=== PATIENT | female | born 1930 | race Caucasian/White ===

== ENCOUNTER 2016-08-14 07:48 | Inpatient (IN) | payer MEDICARE, OTHER ==
[~2016-08-14] VITALS: Ht 162.6 cm; Wt 72.5 kg
[~2016-08-14 07:48] MED LIST: ALBU8.5H4 IH; ASPI-351 PO; CALC3.7S3 NS; CALCIUM; CHLO4TAB PO; CHOLECALCIFEROL 50000 UNIT; DIL2 PO; ERGO400C PO; LEVO50TA83 PO; SMV40T PO; [UNRECOGNIZED DRUG - CODE] PO; [UNRECOGNIZED DRUG - OTHER] VG
[2016-08-14 09:34] VITALS: PULSE 61
[2016-08-14 10:19] VITALS: BP 207/84; PULSE 65; RESP 20; O2SAT 98
[2016-08-14] MEDS ORDERED: MINO100C3 PO (10:35)
[2016-08-14] MEDS ORDERED: LIP40 PO (10:35)
[2016-08-14] MEDS ORDERED: OXYC-474 PO (10:35)
[2016-08-14] MEDS ORDERED: OXYB5TAB PO (10:35)
[2016-08-14] MEDS ORDERED: LOSA25TA21 PO (10:35)
[2016-08-14] MEDS ORDERED: SOMA350 PO (10:35)
[2016-08-14] MEDS ORDERED: BUPR200T34 PO (10:35)
[2016-08-14] MEDS ORDERED: BACL10TA PO (10:35)
[2016-08-14] MEDS ORDERED: BUSP5TAB3 PO (10:35)
[2016-08-14] MEDS ORDERED: ASPI325T32 PO (10:35)
[2016-08-14] MEDS ORDERED: LEVO75TA4 PO (10:35)
[2016-08-14 11:29] VITALS: PULSE 65
[2016-08-14] MEDS ORDERED: Alum-Mag Hydrox-Simeth 30 mL Suspension PO PRN (11:35)
[2016-08-14] MEDS ORDERED: Polyethylene Glycol (PEG) 17 Gm Powder PO PRN (11:35)
--- NOTE | 2016-08-14 13:02 | PCM.HPMED ---
Subjective Date of Service Aug 14, 2016 Primary Provider: Admitting Physician: Jose M Trevino MD Primary Care Physician: Rupert Watson MD Attending Physician: Jose M Trevino MD Chief Complaint: Slurred speech and dizziness History of Present Illness: Patient is a 85-year-old female past medical history significant for hypertension CLL and thyroid disease presenting to the [facility] emergency room due to concern for stroke. She reports a complex history of symptoms beginning at approximately 2 in the afternoon yesterday with a vague dizziness and general discoordination, by 3:00 she is began noting a diffuse headache which was slow to improve with aspirin therapy, dizziness waxed and waned through the afternoon and now she felt that somewhat improved by evening she began to develop numbness in her right upper and lower extremities into the night. By principal gifts officer she developed a right hand paresthesia which was concerning enough that she called for her son who notified ENT. During this exchange her son noted she may been having difficulty with her speech, further raising concern for a possible stroke. Other tiny anterior abdomen is seen dizziness was resolving as was her headache, additionally lower extremity complaints and speech difficulties were all improving. By time of presentation to emergency department at [facility] symptoms had already essentially resolved excepting some minor issues with coordination involving her right upper extremity. She has had no history of stroke and certainly never experienced any similar symptoms such as these in the past. She denies any chest pains currently shortness of breath. Time of my evaluation she is feeling otherwise well. Denies any recent sweats or chills. Normal bowel and bladder function is reported. No noted visual field defects. Denies any cough or recent symptoms of infection. Review of Systems: A 10 point review of systems is conducted and entirely negative except for pertinent positives and negatives included above history of present illness Allergies Coded Allergies: tetracycline (Verified Allergy, Severe, 01/03/09) Blood in bowels Home Medications Atorvastatin 40 mg every evening Wellbutrin 100 mg twice a day BuSpar 10 mg twice daily Soma 350 mg by mouth 4 times daily as needed Levothyroxine 75 g daily Losartan 25 mg daily MetroGel 0.75% topical twice daily affected area Minocycline 100 mg 1-3 times daily Panthenol 1 drop daily ties Oxybutynin 5 mg daily as needed for urinary incontinence Oxycodone 5 mg by mouth every 6 hours as needed for pain PMH Chronic lymphocytic leukemia Hypothyroidism Hypertension Mood disorder with anxiety and depressive symptoms. Surgical History Ankle surgery following fracture with plate and screw needed in addition to cadaver bone graft. Neck surgery, due to spur of cervical vertebra causing neurologic impingement. Hip replacement, total Family History Report no significant past medical history Social History Hx Alcohol Use: No Hx Substance Use: No Smoking Status: Never Smoker Exam Vital Signs Vital Sign - Last Date Time Temp Pulse Resp B/P Pulse Ox O2 Delivery O2 Flow Rate FiO2 08/14/16 11:29 65 08/14/16 10:19 36.6 20 207/84 98 Room Air General: Alert, Oriented X3, Cooperative, No Acute Distress Eyes: PERRLA, EOMI Mouth: Mucous Membr Moist/[place] Neck: Supple, Other Chest & Lungs: Clear to auscultation & percussion Cardiovascular: Regular Rate/Rhythm, No Murmurs/Rubs/Gallops Abdomen: Non-tender, Non-distended Extremities: No cyanosis/clubbing/edma bilat Neurological: Grossly Neurologically Intact, Cranial Nerves 2-12 Intact, Normal Speech, Sensation Intact, Cerebellar Function nl Finger-Nose, Cerebellar Function nl Heel-Piedra, Other (no weakness or tingling of right hand reported during my initial examination) Assessment & Plan 85-year-old female past medical history severe hypertension presented with transient symptoms concerning for TIA or possible stroke. Seun on transfer from [facility] for further evaluation, medically stable condition: 1. TIA/CVA - Patient has essentially resolved CT head without contrast demonstrates no evidence of hemorrhagic condition - We will observe patient on TIA stroke protocol, continuous telemetry monitoring in addition to neurologic checks every 4 hours - MRI via stroke protocol is currently pending of head and neck - Complete echocardiogram also pending - Fasting lipid panel and hemoglobin A1c also ordered and pending - Permissive hypertension will be allowed when necessary medications to keep pressures becoming excessive - Initiate daily aspirin therapy 81 mg starting tomorrow as she has already received 325 emergency department at [facility]. 2. Hypertension - As noted above rule out some degree of permissive hypertension - We will continue patient's home losartan, first dose to be provided on admission - Continue to monitor consider more aggressive control starting tomorrow. 3. Hypothyroidism - TSH is ordered and pending to evaluate current state - We will continue home dose of levothyroxine at this time 4. Mood disorder - We will continue patient's home medications of Wellbutrin and BuSpar Pain Evaluation: Adequate Pain Control GI Prophylaxis: Not indicated VTE Mechanical Devices: Intermittant Pneumatic CD Resuscitation Status: CPR: Attempt Resuscitation Time spent 55 minutes Erasto Osman DO Aug 14, 2016 13:02
[2016-08-14 14:59] VITALS: BP 211/69; PULSE 68; RESP 17; O2SAT 97
[2016-08-14] MEDS: Labetalol 5 mg/mL 4 mL Inj IVPUSH PRN ×3 (15:28→23:28)
[2016-08-14] MEDS: buPROPion SR 100 mg ER12 Tablet PO SCH (18:19)
--- NOTE | 2016-08-14 18:27 | DRSVH ---
PROCEDURE: MRI STROKE PROTOCOL ([id number]) Pre- and post-contrast brain MRI, non-contrast brain MR angiogram, pre- and postcontrast neck MR rashi ogram INDICATIONS: Dizziness,evaluate for stroke TECHNIQUE: Brain: Noncontrast axial T1 spin echo, axial T2 fast spin echo, sagittal and axial FLAIR, coronal T2 fast spin echo, axial gradient echo, axial diffusion and ADC through the brain. After the administr ation of contrast, axial 3D VIBE of the cranial vasculature and brain. Brain MRA: Non-contrast 3-D time of flight MR angiogram, with multiple dfxglzo-mjejphuwg-qkeawyemzz (MIP) reformats performed. Neck MRA: Axial and sagittal TruFISP through the neck. Coronal dynamic MR angiogram during administ ration of contrast in the arterial and venous phases, with 3-dimenstional copvgmg-eftdkvmgu-gjgqzyspk n (MIP) reformats constructed from subtraction images. COMPARISON: None. FINDINGS: Image quality: Excellent. BRAIN: CSF spaces: Ventricles are normal in size and shape. Basal cisterns are patent. No extra-axial flu id collections. Brain: No intracranial bleeds or mass effects. Mcdonald-white matter interface is normal. Diffusion we ighted images show no acute ischemic insults. Punctate and confluent areas of increased T2 signal not ed in the periventricular and subcortical white matter tracts compatible with mild to moderate chroni c microvascular ischemic changes. Brainstem appears normal. Normal intravascular flow voids are pre sent. No abnormal intracranial enhancement. Skull and face: Calvarial marrow signal is normal. Orbits appear normal. Sinuses: Sinuses and mastoids are clear. BRAIN MR ANGIOGRAM: Anterior circulation: Intracranial internal carotid arteries are normal in size and enhancement. Th e flow within the paired anterior cerebral arteries is normal and symmetric. The flow within the mid dle cerebral arteries is normal and symmetric. The anterior communicating artery is seen. No stenos es, occlusions, or aneurysms. Posterior circulation: The visualized portions of the vertebral arteries demonstrate normal caliber, and join to form a normal appearing basilar artery. The flow within the posterior cerebral arteries is normal and symmetric. No stenoses, occlusions, or aneurysms. NECK MR ANGIOGRAM: Carotids: Great vessels demonstrate a conventional anatomy as they arise from the aortic arch. The origins of the common carotid arteries appear patent. The calibers and courses of both common caroti d arteries are normal. Mild atherosclerotic irregularity noted in the origins of the internal carotid arteries bilaterally which causes less than 50% stenosis. Posterior circulation: Atherosclerotic irregularity noted in the origins of the vertebral arteries b ilaterally. Atherosclerotic disease causes high grade stenosis of the origin of the right vertebral artery. Atherosclerotic disease causes moderate stenosis of the origin of the left vertebral artery. More superior portions of both vertebral arteries demonstrate normal course and caliber, and join t o form a normal appearing basilar artery. Miscellaneous: Subclavian arteries appear patent. Pre-contrast images through the neck show no soft tissue abnormalities. IMPRESSION: BRAIN MRI: 1. No acute intracranial disease process. 2. No areas of acute or chronic infarction. 3. Mild, diffuse volume loss. 4. Mild to moderate periventricular and subcortical white matter chronic microvascular ischemic boyd ges. BRAIN MR ANGIOGRAM: Negative examination. NECK MR ANGIOGRAM: 1. Less than 50% stenosis of the internal carotid arteries bilaterally. 2. High-grade stenosis of the origin of the right vertebral artery. 3. Moderate stenosis of the origin of the left vertebral artery. The estimate of stenosis included in the report of the imaging study was calculated using the NASCET method Dictated by: Taya Castañeda MD, PhD on 08/14/2016 at 18:19 Approved by: Taya Castañeda MD, PhD on 08/14/2016 at 18:25
[2016-08-14] MEDS: BusPIRone 15 mg Dividose Tablet PO SCH (20:42)
[2016-08-14 21:05] VITALS: BP 195/76; PULSE 70; RESP 18; O2SAT 97
[2016-08-15] VITALS (14 sets, daily range): BP systolic 145–210; BP diastolic 65–80; PULSE 57–67; RESP 16–20; O2SAT 96–98
[2016-08-15 06:34] LABS: BASOPHILS % (AUTO) 0.2 % (0-3); EOSINOPHILS % (AUTO) 4.8 % (0-5); MONOCYTES % (AUTO) 4.5 % (4-12); Mean Corpuscular Hemoglobin 32.3 pg (27.0-35.0); Mean Corpuscular Volume 101.5 fL (81-100); NEUTROPHILS % (AUTO) 18.3 % (40-74); Platelet Count 173 bil/L (150-400)
[2016-08-15] MEDS: BusPIRone 15 mg Dividose Tablet PO SCH ×2 (08:40→19:57)
[2016-08-15] MEDS: buPROPion SR 100 mg ER12 Tablet PO SCH ×2 (08:43→17:35)
[2016-08-15] MEDS: Labetalol 5 mg/mL 4 mL Inj IVPUSH PRN ×3 (09:32→18:34)
--- NOTE | 2016-08-15 16:01 | DRSVH ---
[facility] [address] [place] [address] Echocardiogram Report Name: HECTOR GOODEN BStudy Date: 08/15/2016 Height: 64 in Hospital Exam Location: [facility] Weight: 143 lb Gender: Female BSA: 1.7 m2 : 1930 Age: 85 yrs BP: 180/75 mmHg Reason For Study: CVA Ordering Physician: HOSPITALIST [facility] Performed By: Brown Rivas Referring Physician: Dr. Anirudh Watson Interpretation Summary The ejection fraction is estimated to be 60-65%. There are no focal wall motion abnormalities. Left ventricular wall thickness is mildly increased. Injection of contrast documented no interatrial shunt. There is mild tricuspid regurgitation. The right ventricular systolic pressure is estimated at 30 mmHg assuming a right atrial pressure of 3 mm Hg. Procedure: A two-dimensional transthoracic echocardiogram with color flow and Doppler was performed. The study quality was technically good. There is no prior echocardiogram noted for this patient. A saline contrast injection was performed to assess for cardiac shunting. The patient was in normal sinus rhythm during the exam. Left Ventricle: The left ventricle is normal in size. Left ventricular wall thickness is mildly increased. A false chord is noted (normal variant). The ejection fraction is estimated to be 60-65%. There are no focal wall motion abnormalities. Right Ventricle: The right ventricle is normal in size and function. Atria: The left atrium is mildly dilated. Right atrial size is normal. Injection of contrast documented no interatrial shunt. Mitral Valve: The mitral valve is normal in structure and function. There is trace mitral regurgitation. Aortic Valve: The aortic valve is normal in structure and function. The aortic valve is trileaflet. The aortic valve opens well. No aortic regurgitation is present. Tricuspid Valve: The tricuspid valve is normal in structure and function. There is mild tricuspid regurgitation. The right ventricular systolic pressure is estimated at 30 mmHg assuming a right atrial pressure of 3 mm Hg. Pulmonic Valve: The pulmonic valve is normal in structure and function. There is trace pulmonic regurgitation. Great Vessels: The aortic root is normal size. The dimensions of the ascending aorta are normal. The pulmonary artery is normal size. The IVC is of normal diameter and collapses greater than 50% with a sniff. This suggests a low right atrial pressure of 3 mm Hg. Pericardium/ Pleura There is no pericardial effusion. There is no pleural effusion. MMode/2D Measurements & Calculations LVIDd: 4.1 cm RA long axis Ao root diam LVIDs: 2.4 cm LA A2 area: 19.9 cm FS: 41.9 % LA A4 area: 18.0 cm RA area Aortic Jxn EPSS: 0.77 cm LA length (vol): 5.1 cm IVSd: 1.3 cm LA vol: 59.7 ml : 16.1 cm asc Aorta LVPWd: 1.3 cm LA vol index RA vol: 45.6 mlDiam: 3.1 cm RA : 26.9 mm2 IVC diam: 1.2 cm LV hansen. diameter/BSA LV sys. diameter/BSA (cm/m^2): 2.4 (cm/m^2): 1.4 Doppler Measurements & Calculations Ao V2 max MV E max miguel MV E/A: 0.69 TR max miguel : 120.9 cm/sec : 54.4 cm/sec Med Peak E' Miguel : 260.1 cm/sec Ao max PG MV A max miguel TR max P.1 mmHg : 5.8 mmHg : 78.8 cm/sec E/E' med: 14.8 PA V2 max: 66.9 cm/sec Ao mean PG Pulm A Revs Dur PA mean P.0 mmHg : 3.5 mmHg PA Accel Time: 0.13 sec MV A dur: 0.14 sec MV dec time Ao V2 mean PA V2 mean Pulm A Revs Dur - MV A : 0.34 sec : 89.3 cm/sec : 47.0 cm/sec Dur: 0.01 msec Ao V2 VTI : 28.5 cm Electronically signed by: Bulmaro De León on Reading Physician:08/15/2016 04:00 PM
[2016-08-15] MEDS ORDERED: Labetalol 5 mg/mL 20 mL Inj IV ONE (17:40)
[2016-08-16] VITALS (11 sets, daily range): BP systolic 135–205; BP diastolic 71–97; PULSE 50–72; RESP 14–20; O2SAT 95–98
--- NOTE | 2016-08-16 00:29 | PCM.PNMED ---
Subjective Date of Service Aug 16, 2016 Subjective Patient is feeling a little bit better. However, she states she has had recurrence of neurological symptoms since admission to the hospital. Exam Vital Signs Vital Sign - Last Date Time Temp Pulse Resp B/P Pulse Ox O2 Delivery O2 Flow Rate FiO2 08/15/16 20:56 36.8 64 18 187/76 96 Room Air Intake and Output 08/15/16 08/15/16 08/16/16 Cumulative From/Thru 15:00 23:00 07:00 08/14/16 09:56 - 08/15/16 19:08 Intake Total 400 ml 1297 ml Output Total 500 ml 1550 ml Balance -100 ml -253 ml Intake Oral 400 ml 950 ml IV Total 337 ml Tube Irrigant 10 ml Output Urine Total 500 ml 1550 ml # Voids 2 # Bowel Movements 1 Exam General: Patient is in no apparent distress lying supine in bed. HEENT: Head is atraumatic and normocephalic. Eyes: Pupils are equally round and reactive to light and accommodation. Extraocular muscles are intact. Sclera are white, anicteric. Subconjunctival mucosa is pink. Ears and nose are unremarkable. Oropharynx: There is no mucosal lesions, there is no thrush, there is no pharyngitis. Neck: Is supple, there are no nodes, or masses or tenderness. Chest: Is clear to auscultation and percussion. There are no rales, rhonchi, wheezes or rubs. Heart: Rate, rhythm is regular. There is no murmur, rub or gallop. Abdomen: Good bowel sounds are present. Abdomen is soft, nontender, no organomegaly or masses were appreciated. Extremities: Are symmetrical and well perfused. There is no edema, there is no cellulitis, no rash. Neurologic: There are no focal neurological deficits. Cranial nerves II through XII are intact. There are no sensory or motor deficits. Psychiatric: Patients mood is calm and shows no sign of agitation. Genital: Deferred Rectal: Deferred Lab and Diagnostics Result Diagram: 08/15/1660408/15/16604 X-Rays, CTs and MRIs PROCEDURE: MRI STROKE PROTOCOL ([id number]) Pre- and post-contrast brain MRI, non-contrast brain MR angiogram, pre- and postcontrast neck MR angiogram INDICATIONS: Dizziness,evaluate for stroke TECHNIQUE: Brain: Noncontrast axial T1 spin echo, axial T2 fast spin echo, sagittal and axial FLAIR, coronal T2 fast spin echo, axial gradient echo, axial diffusion and ADC through the brain. After the administration of contrast, axial 3D VIBE of the cranial vasculature and brain. Brain MRA: Non-contrast 3-D time of flight MR angiogram, with multiple maximum- intensity-projection (MIP) reformats performed. Neck MRA: Axial and sagittal TruFISP through the neck. Coronal dynamic MR angiogram during administration of contrast in the arterial and venous phases, with 3-dimenstional ochdqhq-vnzhndgyx-hylyuesimw (MIP) reformats constructed from subtraction images. COMPARISON: None. FINDINGS: Image quality: Excellent. BRAIN: CSF spaces: Ventricles are normal in size and shape. Basal cisterns are patent. No extra-axial fluid collections. Brain: No intracranial bleeds or mass effects. Mcdonald-white matter interface is normal. Diffusion weighted images show no acute ischemic insults. Punctate and confluent areas of increased T2 signal noted in the periventricular and subcortical white matter tracts compatible with mild to moderate chronic microvascular ischemic changes. Brainstem appears normal. Normal intravascular flow voids are present. No abnormal intracranial enhancement. Skull and face: Calvarial marrow signal is normal. Orbits appear normal. Sinuses: Sinuses and mastoids are clear. BRAIN MR ANGIOGRAM: Anterior circulation: Intracranial internal carotid arteries are normal in size and enhancement. The flow within the paired anterior cerebral arteries is normal and symmetric. The flow within the middle cerebral arteries is normal and symmetric. The anterior communicating artery is seen. No stenoses, occlusions, or aneurysms. Posterior circulation: The visualized portions of the vertebral arteries demonstrate normal caliber, and join to form a normal appearing basilar artery. The flow within the posterior cerebral arteries is normal and symmetric. No stenoses, occlusions, or aneurysms. NECK MR ANGIOGRAM: Carotids: Great vessels demonstrate a conventional anatomy as they arise from the aortic arch. The origins of the common carotid arteries appear patent. The calibers and courses of both common carotid arteries are normal. Mild atherosclerotic irregularity noted in the origins of the internal carotid arteries bilaterally which causes less than 50% stenosis. Posterior circulation: Atherosclerotic irregularity noted in the origins of the vertebral arteries bilaterally. Atherosclerotic disease causes high grade stenosis of the origin of the right vertebral artery. Atherosclerotic disease causes moderate stenosis of the origin of the left vertebral artery. More superior portions of both vertebral arteries demonstrate normal course and caliber, and join to form a normal appearing basilar artery. Miscellaneous: Subclavian arteries appear patent. Pre-contrast images through the neck show no soft tissue abnormalities. IMPRESSION: BRAIN MRI: 1. No acute intracranial disease process. 2. No areas of acute or chronic infarction. 3. Mild, diffuse volume loss. 4. Mild to moderate periventricular and subcortical white matter chronic microvascular ischemic changes. BRAIN MR ANGIOGRAM: Negative examination. NECK MR ANGIOGRAM: 1. Less than 50% stenosis of the internal carotid arteries bilaterally. 2. High-grade stenosis of the origin of the right vertebral artery. 3. Moderate stenosis of the origin of the left vertebral artery. The estimate of stenosis included in the report of the imaging study was calculated using the NASCET method Dictated by: Taya Castañeda MD, PhD on 08/14/2016 at 18:19 Approved by: Taya Castañeda MD, PhD on 08/14/2016 at 18:25 Cardiac Echo Impressions Echocardiogram Report Name: HECTOR GOODEN BStudy Date: 08/15/2016 Height: 64 in Hospital Exam Location: [facility] Weight: 143 lb Gender: Female BSA: 1.7 m2 : 1930 Age: 85 yrs BP: 180/75 mmHg Reason For Study: CVA Ordering Physician: HOSPITALIST [facility] Performed By: Brown Rivas Referring Physician: Dr. Anirudh Watson Interpretation Summary The ejection fraction is estimated to be 60-65%. There are no focal wall motion abnormalities. Left ventricular wall thickness is mildly increased. Injection of contrast documented no interatrial shunt. There is mild tricuspid regurgitation. The right ventricular systolic pressure is estimated at 30 mmHg assuming a right atrial pressure of 3 mm Hg. Assessment & Plan 85-year-old female past medical history severe hypertension presented with transient symptoms concerning for TIA or possible stroke. Seun on transfer from [facility] for further evaluation, medically stable condition: 1. TIA/CVA present of the time of admission with stuttering TIAs after admission to recurrent episodes of right upper extremity and right lower extremity numbness both resolved and patient back at baseline now. - We will observe patient on TIA stroke protocol, continuous telemetry monitoring in addition to neurologic checks every 4 hours - MRI via stroke protocol of head and neck reveal source of patient's symptoms. - Complete echocardiogram also fails to reveal source of patient's symptoms. - Fasting lipid panel and hemoglobin A1c also ordered and are found to be within normal range. - Permissive hypertension will be allowed when necessary medications to keep pressures becoming excessive - Initiate daily aspirin therapy 81 mg starting tomorrow as she has already received 325 emergency department at [facility]. - Continue atorvastatin 2. Hypertension - As noted above rule out some degree of permissive hypertension - We will continue patient's home losartan, first dose to be provided on admission - Continue to monitor consider more aggressive control starting tomorrow. 3. Hypothyroidism - TSH is normal. - We will continue home dose of levothyroxine at this time 4. Mood disorder - We will continue patient's home medications of Wellbutrin and BuSpar Disposition: If patient remains stable and has no recurrent episodes of inpatient TIA like symptoms will likely discharge home in a.m. Pain Evaluation: Adequate Pain Control GI Prophylaxis: Not indicated VTE Mechanical Devices: Intermittant Pneumatic CD Resuscitation Status: CPR: Attempt Resuscitation Jerome Chavez MD Aug 16, 2016 00:29
--- NOTE | 2016-08-16 06:42 | DRSVH ---
PROCEDURE: CT BRAIN WITHOUT CONTRAST ([id number]) INDICATIONS: stroke TECHNIQUE: Noncontrast 4.5 mm thick angled axial sections acquired from the foramen magnum to the vertex, with c oronal reformats. COMPARISON: Outside Film, CT, CT BRAIN WO CON, 08/14/2016, 1:20. FINDINGS: Image quality: Excellent. CSF spaces: Basal cisterns are patent. No extra-axial fluid collections. Ventricles are normal in size and shape. Brain: No midline shift. No intracranial masses or hemorrhage. Mcdonald-white matter interface is norm al. Skull and face: Calvarium and visualized facial bones are intact, without suspicious lesions. Sinuses: Visualized sinuses and mastoids are clear. IMPRESSION: 1. No CT evidence of acute intracranial pathology. 2. There are no discrepancies with the preliminary report. Dictated by: Sumanth Tyler M.D. on 08/16/2016 at 6:38 Approved by: Sumanth Tyler M.D. on 08/16/2016 at 6:40
[2016-08-16 07:02] LABS: BASOPHILS % (AUTO) 0.3 % (0-3); EOSINOPHILS % (AUTO) 4.8 % (0-5); MONOCYTES % (AUTO) 6.1 % (4-12); Mean Corpuscular Volume 101.7 fL (81-100); NEUTROPHILS % (AUTO) 23.7 % (40-74); Platelet Count 152 bil/L (150-400)
[2016-08-16 07:31] LABS: Magnesium 1.8 mg/dL (1.6-2.6)
[2016-08-16] MEDS ORDERED: Magnesium Sulf 2 Gm/50mL Water 2 GM in IV Premix 1 EACH IV ONE (09:15)
[2016-08-16] MEDS: BusPIRone 15 mg Dividose Tablet PO SCH ×2 (09:16→22:01)
[2016-08-16] MEDS: buPROPion SR 100 mg ER12 Tablet PO SCH ×2 (09:18→18:15)
[2016-08-16] MEDS: Labetalol 5 mg/mL 4 mL Inj IVPUSH PRN (10:50)
[2016-08-16] MEDS: Ondansetron 2 mg/mL 2 mL Inj IVPUSH PRN (12:00)
[2016-08-16 14:13] LABS: APPEARANCE,URINE HAZY (CLEAR,HAZY); COLOR,URINE YELLOW (YELLOW)
[2016-08-16 14:14] LABS: OCCULT BLOOD,URINE TRACE (NEGATIVE); UROBILINOGEN,URINE NORMAL (NORMAL)
--- NOTE | 2016-08-16 16:09 | PCM.CHPMED ---
Subjective Date of Service: Aug 16, 2016 Provider requesting consult: Jerome Chavez MD Primary Physician: Admitting Physician: Jose M Trevino MD Primary Care Physician: Rupert Watson MD Attending Physician: Jose M Trevino MD Chief Complaint: Chief Complaint: Right arm and leg numbness, speech difficulty History of Present Illness: Patient is a 85-year-old female with a history of hypertension, CLL, and hypothyroidism, who presented to [facility] ER with impaired coordination, right arm and leg numbness, and transient speech difficulty. Her symptoms began at about 2 PM on 08/13 with dizziness and poor coordination, and she began to develop a diffuse headache. By the evening, she began to develop numbness in her right upper and lower extremities. By the early childhood coordinator, her right hand numbness and tingling had worsened so she called her son who notified EMT. Her son had noticed some speech difficulty over the phone, but this had apparently resolved by the time the medics arrived. She reports her symptoms had mostly resolved by the time she arrived to the hospital, and had no other complaints. She was transferred to [facility], where she was noted to have severe hypertension (BP 207/84). She denied any other symptoms on admission. She was not on Aspirin before the symptoms began. MRI stroke protocol on 08/14/16 showed no acute intracranial process, mild- moderate periventricular and subcortical white matter chronic microvascular ischemic changes, high grade stenosis of the right vertebral artery, and moderate stenosis of the left vertebral artery. CT brain without contrast on 08/15 was negative for any acute intracranial process. Her blood pressure remained elevated and difficult to control, with SBP ranging between 180s-200s. Yesterday, she began to notice worsening right arm and leg numbness and her speech difficulties began worsening. Today, she reports right arm and leg numbness with impaired coordination of her right arm. She also reports worsening speech difficulties, and states she has been having slurred slower speech and difficulty with word-finding. She also reports some difficulty ambulating today due to right leg weakness. She denies vision changes, facial droop, difficulty swallowing. She states she had a recent hip fracture and surgery and has been ambulating with a cane. She states she is very independent at baseline and is highly motivated to return to her independent lifestyle. Review of Systems: Comprehensive review of systems conducted and was negative except for the pertinent positives listed above. PMH Past Medical History Chronic lymphocytic leukemia Hypothyroidism Hypertension Mood disorder with anxiety and depressive symptoms. Bedside Blood Glucose: 145 Surgical History Ankle surgery following fracture with plate and screw needed in addition to cadaver bone graft. Neck surgery, due to spur of cervical vertebra causing neurologic impingement. Hip replacement, total Allergies: Coded Allergies: tetracycline (Verified Allergy, Severe, 01/03/09) Blood in bowels Family History Family History Report no significant family history Social History Hx Alcohol Use: NoHx Substance Use: No Smoking Status: Never Smoker Exam Vital Signs Vital Sign - Last Date Time Temp Pulse Resp B/P Pulse Ox O2 Delivery O2 Flow Rate FiO2 08/16/16 13:58 36.4 61 14 135/73 08/16/16 10:05 98 Room Air Intake and Output 08/15/16 08/15/16 08/16/16 Cumulative From/Thru 15:00 23:00 07:00 08/14/16 09:56 - 08/16/16 06:16 Intake Total 400 ml 200 ml 1497 ml Output Total 500 ml 300 ml 1850 ml Balance -100 ml -100 ml -353 ml Intake Oral 400 ml 200 ml 1150 ml IV Total 337 ml Tube Irrigant 10 ml Output Urine Total 500 ml 300 ml 1850 ml # Voids 2 # Bowel Movements 0 1 Additional Information: General: Alert, Oriented X3, Cooperative, No acute distress Head: Normocephalic, atraumatic. External ears normal. Eyes: PERRLA, EOMI. Anicteric sclerae. Mouth: Mouth normal, Mucous membranes moist/pink Neck: Neck supple with full range of motion. Chest& Lungs: Clear to auscultation bilaterally with no crackles, wheezes, or rhonchi. Cardiovascular: Regular rate/rhythm, Normal S1, Normal S2, No murmurs/rubs/ gallops Abdomen: Non-tender, Non-distended, No masses, Normoactive bowel tones, Soft Musculoskeletal: Normal range of motion Extremities: Bilateral lower extremity 1+ edema with chronic venous stasis changes. Neurological: Slow slurred speech, with some delayed word finding. Strength 4/4 in left upper and lower extremities. Strength 3/4 in right arm, 2/4 in right leg. Cranial Nerves 2-12 Intact with some right sided facial droop, decreased temperature sensation in right upper extremity, Finger-Nose and Heel-Piedra slow on the right due to weakness, but fairly normal. Lab and Diagnostics Result Diagram: 08/16/16 0640 08/16/1640 Assessment & Plan Assessment Patient is a 85-year-old female with a history of hypertension, CLL, and hypothyroidism, who presented to [facility] ER with impaired coordination, right arm and leg numbness and weakness, and transient speech difficulty, and experienced recurrence of her symptoms on 08/15/16. Acute stroke. The patient's symptoms have persisted and worsened over 4 days, which makes TIA much less likely. Her severe hypertension has likely been in response to her stroke. Given her right sided weakness and numbness, along with waxing and waning symptoms, she likely has a lacunar stroke, as a left sided hemispheric lesion in a right handed patient would likely result in some aphasia, which she does not demonstrate. Her MRI angio and CT noncontrast of the brain were previously negative, but given her recent change in symptoms, we recommend further imaging. Will order MRI of brain noncontrast with CT angio of head and neck. CT angio tends to more accurately represent stenosis of head/neck vasculature than MRI, and MRI captures brainstem and cerebellar strokes more accurately. As this appears to be a stroke secondary to extracranial cerebrovascular disease, we recommend monotherapy with Aspirin. We also recommend high-dose statin therapy. As she was cleared by speech therapy before her symptoms worsened, we recommend a repeat swallow study. Also recommend continuing with physical therapy. If she has severe cerebrovascular disease on repeat imaging, recommend outpatient referral to [facility] for evaluation for possible stenting. - Aspirin 81 mg daily - Increase atorvastatin to 80 mg daily - MRI noncontrast of brain - CT angio of head/neck - Repeat swallow study - Continue physical therapy - Maintain BP below 140/90 Problems: Pain Evaluation: Adequate Pain Control GI Prophylaxis: Not indicated VTE Mechanical Devices: Venous Foot Pump Resuscitation Status: CPR: Attempt Resuscitation Jorge Luis Nino Aug 16, 2016 16:08
--- NOTE | 2016-08-16 21:44 | DRSVH ---
PROCEDURE: MRI BRAIN WITHOUT CONTRAST ([id number]) INDICATIONS: Stroke TECHNIQUE: Non-contrast axial T1 spin echo, axial T2 fast spin echo, sagittal and axial FLAIR, coronal T2 fast s pin echo, axial gradient echo, axial diffusion and ADC through the brain. COMPARISON: [facility], CT, CT BRAIN WO CON, 08/15/2016, 22:12. [facility], MR, MR STROKE PROTOCOL, 08/14/2016, 16:37. [facility], CT, CT BRAIN WO CON, 08/14/2016, 1:20. FINDINGS: Image quality: Excellent. CSF spaces: Ventricles appear symmetric in size and shape. Basal cisterns are patent. No extra-axi al fluid collections. Brain: No intracranial bleeds or mass effects. There is cerebral volume loss for age. There are pe riventricular and deep white matter chronic small vessel ischemic changes. Brainstem appears normal. Diffusion-weighted images show a new left pontine 5 x 6 mm focus of acute or subacute ischemic inju ry, as seen on the diffusion pulse sequence series 2 image 59 and corroborated by reduced ADC map angela ue in that area. Mild to moderate chronic ischemic insults. Normal intravascular flow voids are pres ent. Skull and face: Calvarial bone marrow is normal in signal. Orbits are normal. Sinuses: Sinuses and mastoids are clear. IMPRESSION: There is a new finding of a 5 x 6 mm focus of acute or subacute stroke involving the lef t pontine region of the brainstem, without mass effect or hemorrhage. No additional focus of recent ischemic injury is found. Dictated by: Elijah Samuel M.D. on 08/16/2016 at 21:36 Approved by: Elijah Samuel M.D. on 08/16/2016 at 21:42
--- NOTE | 2016-08-16 22:21 | DRSVH ---
PROCEDURE: CT ANGIO HEAD AND NECK (P) INDICATIONS: 85 year-old female with history of new pontine infarct presenting for evaluation of poss ible vertebral artery occlusive disease. TECHNIQUE: Pre-contrast 4.5 mm thick sections acquired from the foramen magnum to the vertex. After the adminis tration of intravenous contrast, 1 mm thick sections acquired from the aortic arch through the [place] of [place]. Post-contrast 4.5 mm thick sections then re-acquired from the foramen magnum to the vert ex. 3-dimensional lvuzlzs-lwzubrogv-pjpvzerwoe (MIP) and/or volume rendering reformats were acquired of the central intracranial vasculature and neck separately. For radiation dose reduction, the foll owing was used: automated exposure control, adjustment of mA and/or kV according to patient size. COMPARISON: [facility], MR, MR STROKE PROTOCOL, 08/14/2016, 16:37. [facility], MR, MR BRAIN WO CON, 08/16/2016, 20:57. [facility], CT, CT BRAIN WO CON, 08/15/2016, 22 :12. FINDINGS: Image quality: Excellent. BRAIN: CSF spaces: There is mild cerebral volume loss with prominence of the ventricles and sulci. Basal ci sterns are patent. No extra-axial fluid collections. Brain: There is a small indistinct hypodensity within the left alberto corresponding to the acute focal infarct seen on recent MRI. No intracranial hemorrhage, mass, or mass effect. There are bilateral s ubcortical and periventricular white matter hypodensity consistent with moderate chronic small vessel ischemic changes. Skull and face: Calvarium and facial bones appear intact, without suspicious lesions. Orbits appear normal. Sinuses: Sinuses and mastoids are clear. HEAD CT ANGIOGRAPHY: Anterior circulation: Intracranial internal carotid arteries are patent bilaterally. The flow withi n the paired anterior cerebral arteries is patent bilaterally. The flow within the middle cerebral a rteries is patent bilaterally. The anterior communicating artery is patent. No high-grade stenosis or occlusion. No discrete aneurysms. Posterior circulation: Visualized portions of the vertebral arteries are patent bilaterally and join to form a patent basilar artery. Flow within the posterior cerebral arteries is normal and symmetri c. No aneurysms are seen. NECK CT ANGIOGRAPHY: Carotid system: The great vessels demonstrate conventional anatomy as they arise from the aortic arc h. The origins of the common carotid arteries appear patent. The common carotid arteries demonstrat e normal caliber and courses. There is calcified plaque in the carotid bulbs bilaterally, left great er than right. There is associated mild narrowing in the left carotid bulb with less than 50%. Ther e is minimal narrowing in the right carotid bulb of less than 20%. The internal carotid arteries dem onstrate normal calibers and courses. Posterior circulation: The origins of the vertebral arteries are both patent without focal stenoses. There is tortuosity within the proximal vertebral arteries bilaterally. The more superior extracra nial portions of both vertebral arteries also appear patent along the course. They join to form a pa tent appearing basilar artery. Soft tissues: Visualized neck soft tissues demonstrate no suspicious abnormalities. Bones: No suspicious bony lesions. Visualized cervical spine appears normally aligned. IMPRESSION: 1. No high-grade stenosis or occlusion of the central intracranial arteries or head and neck arterie s. Specifically, no focal stenosis demonstrated in the vertebral or basilar arteries. 2. Tortuosity in the proximal vertebral arteries likely accounts for artifact on recent MRI. No foc al stenosis demonstrated at their origins. 3. Mild narrowing in the carotid bulbs bilaterally of less than 20% on the right and less than 50% o n the left. 4. Small hypodensity demonstrated in the left alberto corresponding to the acute infarct seen on recent MRI. No evidence of intracranial hemorrhage. Dictated by: Levi Oneal M.D. on 08/16/2016 at 22:08 Approved by: Levi Oneal M.D. on 08/16/2016 at 22:20
--- NOTE | 2016-08-16 22:42 | PCM.PNMED ---
Subjective Date of Service Aug 16, 2016 Subjective Patient's does not feel well today and her family is concerned as her speech is slurred again today. Patient had dizziness and nausea and vomiting 1 today. Patient has no other new complaints. This afternoon she is feeling a little better. Exam Vital Signs Vital Sign - Last Date Time Temp Pulse Resp B/P Pulse Ox O2 Delivery O2 Flow Rate FiO2 08/16/16 21:23 36.6 58 18 187/78 95 Room Air Intake and Output 08/15/16 08/15/16 08/16/16 Cumulative From/Thru 15:00 23:00 07:00 08/14/16 09:56 - 08/16/16 06:16 Intake Total 400 ml 200 ml 1497 ml Output Total 500 ml 300 ml 1850 ml Balance -100 ml -100 ml -353 ml Intake Oral 400 ml 200 ml 1150 ml IV Total 337 ml Tube Irrigant 10 ml Output Urine Total 500 ml 300 ml 1850 ml # Voids 2 # Bowel Movements 0 1 Exam General: Patient appears tired and fatigued. Patient otherwise is in no apparent distress lying supine in bed. HEENT: Head is atraumatic and normocephalic. Eyes: Pupils are equally round and reactive to light and accommodation. Extraocular muscles are intact. Sclera are white, anicteric. Subconjunctival mucosa is pink. Ears and nose are unremarkable. Oropharynx: There is no mucosal lesions, there is no thrush, there is no pharyngitis. Neck: Is supple, there are no nodes, or masses or tenderness. Chest: Is clear to auscultation and percussion. There are no rales, rhonchi, wheezes or rubs. Heart: Rate, rhythm is regular. There is no murmur, rub or gallop. Abdomen: Good bowel sounds are present. Abdomen is soft, nontender, no organomegaly or masses were appreciated. Extremities: Are symmetrical and well perfused. There is no edema, there is no cellulitis, no rash. Neurologic: There are no focal neurological deficits. Cranial nerves II through XII are intact. There are no sensory or motor deficits. However, patient speech is not slurred today. Psychiatric: Patients mood is calm and shows no sign of agitation. Genital: Deferred Rectal: Deferred Lab and Diagnostics Result Diagram: 08/16/16 0640 08/16/16 0640 X-Rays, CTs and MRIs PROCEDURE: MRI STROKE PROTOCOL ([id number]) Pre- and post-contrast brain MRI, non-contrast brain MR angiogram, pre- and postcontrast neck MR angiogram INDICATIONS: Dizziness,evaluate for stroke TECHNIQUE: Brain: Noncontrast axial T1 spin echo, axial T2 fast spin echo, sagittal and axial FLAIR, coronal T2 fast spin echo, axial gradient echo, axial diffusion and ADC through the brain. After the administration of contrast, axial 3D VIBE of the cranial vasculature and brain. Brain MRA: Non-contrast 3-D time of flight MR angiogram, with multiple maximum- intensity-projection (MIP) reformats performed. Neck MRA: Axial and sagittal TruFISP through the neck. Coronal dynamic MR angiogram during administration of contrast in the arterial and venous phases, with 3-dimenstional iewspbj-smjkwuvdh-svgjnemomb (MIP) reformats constructed from subtraction images. COMPARISON: None. FINDINGS: Image quality: Excellent. BRAIN: CSF spaces: Ventricles are normal in size and shape. Basal cisterns are patent. No extra-axial fluid collections. Brain: No intracranial bleeds or mass effects. Mcdonald-white matter interface is normal. Diffusion weighted images show no acute ischemic insults. Punctate and confluent areas of increased T2 signal noted in the periventricular and subcortical white matter tracts compatible with mild to moderate chronic microvascular ischemic changes. Brainstem appears normal. Normal intravascular flow voids are present. No abnormal intracranial enhancement. Skull and face: Calvarial marrow signal is normal. Orbits appear normal. Sinuses: Sinuses and mastoids are clear. BRAIN MR ANGIOGRAM: Anterior circulation: Intracranial internal carotid arteries are normal in size and enhancement. The flow within the paired anterior cerebral arteries is normal and symmetric. The flow within the middle cerebral arteries is normal and symmetric. The anterior communicating artery is seen. No stenoses, occlusions, or aneurysms. Posterior circulation: The visualized portions of the vertebral arteries demonstrate normal caliber, and join to form a normal appearing basilar artery. The flow within the posterior cerebral arteries is normal and symmetric. No stenoses, occlusions, or aneurysms. NECK MR ANGIOGRAM: Carotids: Great vessels demonstrate a conventional anatomy as they arise from the aortic arch. The origins of the common carotid arteries appear patent. The calibers and courses of both common carotid arteries are normal. Mild atherosclerotic irregularity noted in the origins of the internal carotid arteries bilaterally which causes less than 50% stenosis. Posterior circulation: Atherosclerotic irregularity noted in the origins of the vertebral arteries bilaterally. Atherosclerotic disease causes high grade stenosis of the origin of the right vertebral artery. Atherosclerotic disease causes moderate stenosis of the origin of the left vertebral artery. More superior portions of both vertebral arteries demonstrate normal course and caliber, and join to form a normal appearing basilar artery. Miscellaneous: Subclavian arteries appear patent. Pre-contrast images through the neck show no soft tissue abnormalities. IMPRESSION: BRAIN MRI: 1. No acute intracranial disease process. 2. No areas of acute or chronic infarction. 3. Mild, diffuse volume loss. 4. Mild to moderate periventricular and subcortical white matter chronic microvascular ischemic changes. BRAIN MR ANGIOGRAM: Negative examination. NECK MR ANGIOGRAM: 1. Less than 50% stenosis of the internal carotid arteries bilaterally. 2. High-grade stenosis of the origin of the right vertebral artery. 3. Moderate stenosis of the origin of the left vertebral artery. The estimate of stenosis included in the report of the imaging study was calculated using the NASCET method Dictated by: Taya Castañeda MD, PhD on 08/14/2016 at 18:19 Approved by: Taya Castañeda MD, PhD on 08/14/2016 at 18:25 Cardiac Echo Impressions Echocardiogram Report Name: HECTOR GOODEN BStudy Date: 08/15/2016 Height: 64 in Hospital Exam Location: [facility] Weight: 143 lb Gender: Female BSA: 1.7 m2 : 1930 Age: 85 yrs BP: 180/75 mmHg Reason For Study: CVA Ordering Physician: HOSPITALIST [facility] Performed By: Brown Rivas Referring Physician: Dr. Anirudh Watson Interpretation Summary The ejection fraction is estimated to be 60-65%. There are no focal wall motion abnormalities. Left ventricular wall thickness is mildly increased. Injection of contrast documented no interatrial shunt. There is mild tricuspid regurgitation. The right ventricular systolic pressure is estimated at 30 mmHg assuming a right atrial pressure of 3 mm Hg. Assessment & Plan 85-year-old female past medical history severe hypertension presented with transient symptoms concerning for TIA or possible stroke. Ce[facility]in on transfer from [facility] for further evaluation, medically stable condition: 1. TIA/CVA present of the time of admission with stuttering TIAs after admission with recurrent episodes of right upper extremity and right lower extremity numbness both resolved and patient back at baseline now. However, patient now has slurred speech. It is - We will observe patient on TIA stroke protocol, continuous telemetry monitoring in addition to neurologic checks every 4 hours - MRI via stroke protocol of head and neck failed to reveal source of patient's symptoms. - Complete echocardiogram also fails to reveal source of patient's symptoms. - Fasting lipid panel and hemoglobin A1c also ordered and are found to be within normal range. - Permissive hypertension was allowed and when necessary medications to keep pressures becoming excessive. - Continue daily aspirin therapy. - Continue atorvastatin - I have consulted Dr. Terry Gallardo of neurology and appreciate his time and expertise. Dr. Gallardo recommends increasing losartan for improved blood pressure control at this point. - Dr. Gallardo also recommends the following: "- Aspirin 81 mg daily - Increase atorvastatin to 80 mg daily - MRI noncontrast of brain - CT angio of head/neck - Repeat swallow study - Continue physical therapy - Maintain BP below 140/90" 2. Hypertension - As noted above rule out some degree of permissive hypertension - We will continue patient's home losartan, first dose to be provided on admission - Continue to monitor consider more aggressive control starting tomorrow. - I have consulted Dr. Terry Gallardo of neurology and appreciate his time and expertise. Dr. Gallardo recommends increasing losartan for improved blood pressure control at this point. 3. Hypothyroidism - TSH is normal. - We will continue home dose of levothyroxine at this time 4. Mood disorder - We will continue patient's home medications of Wellbutrin and BuSpar Disposition: According to Dr. Terry gallardo patient has likely had a lacunar cerebrovascular accident which has gone undetected by MRI. And will continue with speech therapy and occupational therapy and physical therapy. Will discharge home when we are certain patient's symptoms are not worsening. And she is either stable or improving. Pain Evaluation: Adequate Pain Control GI Prophylaxis: Not indicated VTE Mechanical Devices: Venous Foot Pump Resuscitation Status: CPR: Attempt Resuscitation Jerome Chavez MD Aug 16, 2016 22:42
[2016-08-17] VITALS (9 sets, daily range): BP systolic 128–186; BP diastolic 66–81; PULSE 53–67; RESP 15–18; O2SAT 94–98
[2016-08-17 06:33] LABS: BASOPHILS % (AUTO) 0.2 % (0-3); EOSINOPHILS % (AUTO) 4.4 % (0-5); MONOCYTES % (AUTO) 4.9 % (4-12); Mean Corpuscular Hemoglobin 32.1 pg (27.0-35.0); Mean Corpuscular Volume 101.5 fL (81-100); NEUTROPHILS % (AUTO) 27.4 % (40-74); Platelet Count 169 bil/L (150-400)
[2016-08-17 06:51] LABS: Phosphorus 4.4 mg/dL (2.5-4.9)
[2016-08-17] MEDS: buPROPion SR 100 mg ER12 Tablet PO SCH ×2 (09:35→16:59)
[2016-08-17] MEDS: BusPIRone 15 mg Dividose Tablet PO SCH ×2 (09:35→21:48)
[2016-08-17] MEDS: Ondansetron 2 mg/mL 2 mL Inj IVPUSH PRN (09:59)
--- NOTE | 2016-08-17 18:05 | PCM.PNMED ---
Subjective Date of Service Aug 17, 2016 Subjective Patient this morning complained of right upper extremity weakness and right lower extremity weakness which is new. Previously she had complained of right upper extremity numbness and right lower extremity numbness. Patient continues to have slurred speech. Exam Vital Signs Vital Sign - Last Date Time Temp Pulse Resp B/P Pulse Ox O2 Delivery O2 Flow Rate FiO2 08/17/16 17:42 36.8 66 18 153/81 98 Room Air Intake and Output 08/16/16 08/16/16 08/17/16 Cumulative From/Thru 15:00 23:00 07:00 08/14/16 09:56 - 08/17/16 05:49 Intake Total 400 ml 300 ml 2197 ml Output Total 500 ml 500 ml 2850 ml Balance -100 ml -200 ml -653 ml Intake Oral 400 ml 300 ml 1850 ml IV Total 337 ml Tube Irrigant 10 ml Output Urine Total 500 ml 500 ml 2850 ml # Voids 2 # Bowel Movements 1 Exam General: Patient appears tired and fatigued. Patient otherwise is in no apparent distress lying supine in bed. HEENT: Head is atraumatic and normocephalic. Eyes: Pupils are equally round and reactive to light and accommodation. Extraocular muscles are intact. Sclera are white, anicteric. Subconjunctival mucosa is pink. Ears and nose are unremarkable. Oropharynx: There is no mucosal lesions, there is no thrush, there is no pharyngitis. Neck: Is supple, there are no nodes, or masses or tenderness. Chest: Is clear to auscultation and percussion. There are no rales, rhonchi, wheezes or rubs. Heart: Rate, rhythm is regular. There is no murmur, rub or gallop. Abdomen: Good bowel sounds are present. Abdomen is soft, nontender, no organomegaly or masses were appreciated. Extremities: Are symmetrical and well perfused. There is no edema, there is no cellulitis, no rash. Neurologic: Cranial nerves II through XII are intact. Patient has some weakness of the right upper extremity and weakness of the right lower extremity. Patient has slurred speech today. Psychiatric: Patients mood is calm and shows no sign of agitation. Genital: Deferred Rectal: Deferred Lab and Diagnostics Result Diagram: 08/17/1661908/17/16 0620 X-Rays, CTs and MRIs PROCEDURE: MRI STROKE PROTOCOL ([id number]) Pre- and post-contrast brain MRI, non-contrast brain MR angiogram, pre- and postcontrast neck MR angiogram INDICATIONS: Dizziness,evaluate for stroke TECHNIQUE: Brain: Noncontrast axial T1 spin echo, axial T2 fast spin echo, sagittal and axial FLAIR, coronal T2 fast spin echo, axial gradient echo, axial diffusion and ADC through the brain. After the administration of contrast, axial 3D VIBE of the cranial vasculature and brain. Brain MRA: Non-contrast 3-D time of flight MR angiogram, with multiple maximum- intensity-projection (MIP) reformats performed. Neck MRA: Axial and sagittal TruFISP through the neck. Coronal dynamic MR angiogram during administration of contrast in the arterial and venous phases, with 3-dimenstional cydghtt-rneuhlbsz-qdypuyqotg (MIP) reformats constructed from subtraction images. COMPARISON: None. FINDINGS: Image quality: Excellent. BRAIN: CSF spaces: Ventricles are normal in size and shape. Basal cisterns are patent. No extra-axial fluid collections. Brain: No intracranial bleeds or mass effects. Mcdonald-white matter interface is normal. Diffusion weighted images show no acute ischemic insults. Punctate and confluent areas of increased T2 signal noted in the periventricular and subcortical white matter tracts compatible with mild to moderate chronic microvascular ischemic changes. Brainstem appears normal. Normal intravascular flow voids are present. No abnormal intracranial enhancement. Skull and face: Calvarial marrow signal is normal. Orbits appear normal. Sinuses: Sinuses and mastoids are clear. BRAIN MR ANGIOGRAM: Anterior circulation: Intracranial internal carotid arteries are normal in size and enhancement. The flow within the paired anterior cerebral arteries is normal and symmetric. The flow within the middle cerebral arteries is normal and symmetric. The anterior communicating artery is seen. No stenoses, occlusions, or aneurysms. Posterior circulation: The visualized portions of the vertebral arteries demonstrate normal caliber, and join to form a normal appearing basilar artery. The flow within the posterior cerebral arteries is normal and symmetric. No stenoses, occlusions, or aneurysms. NECK MR ANGIOGRAM: Carotids: Great vessels demonstrate a conventional anatomy as they arise from the aortic arch. The origins of the common carotid arteries appear patent. The calibers and courses of both common carotid arteries are normal. Mild atherosclerotic irregularity noted in the origins of the internal carotid arteries bilaterally which causes less than 50% stenosis. Posterior circulation: Atherosclerotic irregularity noted in the origins of the vertebral arteries bilaterally. Atherosclerotic disease causes high grade stenosis of the origin of the right vertebral artery. Atherosclerotic disease causes moderate stenosis of the origin of the left vertebral artery. More superior portions of both vertebral arteries demonstrate normal course and caliber, and join to form a normal appearing basilar artery. Miscellaneous: Subclavian arteries appear patent. Pre-contrast images through the neck show no soft tissue abnormalities. IMPRESSION: BRAIN MRI: 1. No acute intracranial disease process. 2. No areas of acute or chronic infarction. 3. Mild, diffuse volume loss. 4. Mild to moderate periventricular and subcortical white matter chronic microvascular ischemic changes. BRAIN MR ANGIOGRAM: Negative examination. NECK MR ANGIOGRAM: 1. Less than 50% stenosis of the internal carotid arteries bilaterally. 2. High-grade stenosis of the origin of the right vertebral artery. 3. Moderate stenosis of the origin of the left vertebral artery. The estimate of stenosis included in the report of the imaging study was calculated using the NASCET method Dictated by: Taya Castañeda MD, PhD on 08/14/2016 at 18:19 Approved by: Taya Castañeda MD, PhD on 08/14/2016 at 18:25 Cardiac Echo Impressions Echocardiogram Report Name: HECTOR GOODEN BStudy Date: 08/15/2016 Height: 64 in Hospital Exam Location: [facility] Weight: 143 lb Gender: Female BSA: 1.7 m2 : 1930 Age: 85 yrs BP: 180/75 mmHg Reason For Study: CVA Ordering Physician: HOSPITALIST [facility] Performed By: Brown Rivas Referring Physician: Dr. Anirudh Watson Interpretation Summary The ejection fraction is estimated to be 60-65%. There are no focal wall motion abnormalities. Left ventricular wall thickness is mildly increased. Injection of contrast documented no interatrial shunt. There is mild tricuspid regurgitation. The right ventricular systolic pressure is estimated at 30 mmHg assuming a right atrial pressure of 3 mm Hg. Assessment & Plan 85-year-old female past medical history severe hypertension presented with transient symptoms concerning for TIA or possible stroke. Ceftin on transfer from [facility] for further evaluation, medically stable condition: 1. CVA present of the time of admission with waxing and waning of symptoms after admission with recurrent episodes of right upper extremity and right lower extremity numbness, and now weakness. Patient continues to have slurred speech. - We will observe patient on stroke protocol, continuous telemetry monitoring in addition to neurologic checks every 4 hours - Repeat MRI via stroke protocol of head, showed a left alberto cerebrovascular accident. - Complete echocardiogram also fails to reveal source of patient's symptoms. - Fasting lipid panel and hemoglobin A1c also ordered and are found to be within normal range. - Permissive hypertension was allowed initially - Continue daily aspirin therapy. - Continue atorvastatin - I have consulted Dr. Terry Cintron of neurology and appreciate his time and expertise. Dr. Cintron recommends increasing losartan for improved blood pressure control at this point. - Dr. Cintron also recommends the following: "- Aspirin 81 mg daily - Increase atorvastatin to 80 mg daily - MRI noncontrast of brain - CT angio of head/neck - Repeat swallow study - Continue physical therapy - Maintain BP below 140/90" 2. Hypertension - As noted above rule out some degree of permissive hypertension - We will continue patient's home losartan, first dose to be provided on admission - Continue to monitor consider more aggressive control starting tomorrow. - I have consulted Dr. Terry Cintron of neurology and appreciate his time and expertise. Dr. Cintron recommends increasing losartan for improved blood pressure control at this point. We will add amlodipine 2.5 mg by mouth this evening 3. Hypothyroidism - TSH is normal. - We will continue home dose of levothyroxine at this time 4. Mood disorder - We will continue patient's home medications of Wellbutrin and BuSpar Disposition: I spoke with Dr. Terry Cintron today regarding patient's condition. He feels that the patient's symptoms may continue to worsen or wax and wane. Therefore, will need to continue close monitoring with neuro checks and blood pressure control until patient has become more stable. Pain Evaluation: Adequate Pain Control GI Prophylaxis: Not indicated VTE Mechanical Devices: Intermittant Pneumatic CD Resuscitation Status: CPR: Attempt Resuscitation Jerome Chavez MD Aug 17, 2016 18:04
--- NOTE | 2016-08-17 20:12 | PROG NOTE ---
[address] [address] PROGRESS NOTE PATIENT: HECTOR GOODEN : 1930 MR#: [id number] ADMIT: 08/14/2016 JOB ID: [id number] DATE: 08/17/2016 SUBJECTIVE: The patient reportedly did note transient worsening of her neurologic symptoms Earlier today. This has since slightly improved. I did explain to her that this is likely secondary to the stuttering nature of her transient ischemic attack. PHYSICAL EXAMINATION: Temperature 36.3, pulse of 61, respiratory rate of 18, blood pressure 137/72, pulse oximetry 98% on room air. General: She is a well-developed, well-nourished woman, in no acute distress. Head: Normocephalic, atraumatic. Neck supple. No carotid bruits were auscultated. Chest: Clear to auscultation. Heart: Regular rate and rhythm. Abdomen: Soft, nondistended, nontender. Extremities: No cyanosis, clubbing, or edema. NEUROLOGIC EXAMINATION: Mental status: She is awake, alert, and oriented x3. Speech is dysarthric but there is no aphasia. Cranial nerves: Pupils equal, round, and reactive to light. Extraocular movements were smooth and conjugate with no evidence of nystagmus. Face appeared symmetrical. Facial sensation was intact to light touch and temperature. There was a mild right facial droop as well as diminished sensation on the right side of her face. Tongue was midline. Sternocleidomastoid and trapezius were 5/5 bilaterally. Motor: Right upper extremity 4/5. Right lower extremity 3/5. Extremities: There was bilateral lower extremity 1+ edema with chronic venous stasis changes. Sensation was diminished to light touch and temperature over the right upper and right lower extremities. Coordination: Elrbfp-zf-jjop and zsts-em-ixwq were abnormal, however, commensurate, given the degree of weakness with no evidence of dysmetria. Deep tendon reflexes diminished throughout. The Babinski was present bilaterally. Gait was deferred. IMPRESSION: A 5 x 6 mm subacute stroke involving the left pontine region of the brainstem without mass effect or hemorrhage. The computed tomography angiogram demonstrated no high-grade stenosis or occlusion of the central intracranial arteries of the head and neck. No focal stenosis was noted in the vertebral or basilar arteries. There was tortuosity of the proximal vertebral arteries likely accounting for artifact of the prior magnetic resonance imaging study of the brain, and no focal stenosis demonstrated at their origins, however. Mild narrowing of the carotid bulbs bilaterally, less than 20% on the right and less than 50% on the left was noted. On the CT today, a small hypodensity corresponding to the acute infarct was appreciated. RECOMMENDATIONS: Continue stroke protocol. Continue to optimize control of her stroke risk factors including hypertension. At this point, she has had permissive hypertension since the onset of the stroke on Friday, and at this point, I would continue to optimize control of her blood pressures, gradually bringing the blood pressure under closer control, aiming for a systolic of 140. Continue stroke protocol. Continue physical therapy/occupational therapy. She would also benefit from being evaluated for placement in a retirement facility or undergoing inpatient rehab. Thank you, again, Dr. Chavez, for allowing me to participate in the care of your patient. Please feel free to contact me with any questions or concerns. I believe that she would benefit from either obtaining further therapy in a retirement facility or inpatient rehabilitation.
[2016-08-18] VITALS (8 sets, daily range): BP systolic 147–197; BP diastolic 51–77; PULSE 57–68; RESP 16–18; O2SAT 95–98
[2016-08-18 08:03] LABS: BASOPHILS % (AUTO) 0.4 % (0-3); EOSINOPHILS % (AUTO) 3.8 % (0-5); MONOCYTES % (AUTO) 5.9 % (4-12); NEUTROPHILS % (AUTO) 21.2 % (40-74); Platelet Count 166 bil/L (150-400)
[2016-08-18] MEDS: BusPIRone 15 mg Dividose Tablet PO SCH ×2 (09:14→20:11)
[2016-08-18] MEDS: buPROPion SR 100 mg ER12 Tablet PO SCH ×2 (09:15→17:41)
[2016-08-18 14:02] LABS: APPEARANCE,URINE CLEAR (CLEAR,HAZY); COLOR,URINE STRAW (YELLOW)
[2016-08-18 14:03] LABS: OCCULT BLOOD,URINE TRACE (NEGATIVE); UROBILINOGEN,URINE NORMAL (NORMAL)
[2016-08-18] MEDS: Labetalol 5 mg/mL 4 mL Inj IVPUSH PRN (19:22)
--- NOTE | 2016-08-18 22:21 | PCM.PNMED ---
Subjective Date of Service Aug 18, 2016 Subjective Patient continues to feel very dizzy in the morning with nausea. However this morning she did not experience any emesis which she had the 2 previous mornings. She still feels very weak and still has right upper extremity and right lower extremity weakness along with slurred speech. Exam Vital Signs Vital Sign - Last Date Time Temp Pulse Resp B/P Pulse Ox O2 Delivery O2 Flow Rate FiO2 08/18/16 20:10 156/51 08/18/16 20:00 62 08/18/16 18:21 36.4 18 98 Room Air Intake and Output 08/17/16 08/17/16 08/18/16 Cumulative From/Thru 15:00 23:00 07:00 08/14/16 09:56 - 08/18/16 05:09 Intake Total 636 ml 2833 ml Output Total 275 ml 3125 ml Balance 361 ml -292 ml Intake Oral 636 ml 2486 ml IV Total 337 ml Tube Irrigant 10 ml Output Urine Total 200 ml 3050 ml Emesis 75 ml 75 ml # Voids 1 3 # Bowel Movements 1 Exam General: Patient appears tired and fatigued. Patient otherwise is in no apparent distress lying supine in bed. HEENT: Head is atraumatic and normocephalic. Eyes: Pupils are equally round and reactive to light and accommodation. Extraocular muscles are intact. Sclera are white, anicteric. Subconjunctival mucosa is pink. Ears and nose are unremarkable. Oropharynx: There is no mucosal lesions, there is no thrush, there is no pharyngitis. Neck: Is supple, there are no nodes, or masses or tenderness. Chest: Is clear to auscultation and percussion. There are no rales, rhonchi, wheezes or rubs. Heart: Rate, rhythm is regular. There is no murmur, rub or gallop. Abdomen: Good bowel sounds are present. Abdomen is soft, nontender, no organomegaly or masses were appreciated. Extremities: Are symmetrical and well perfused. There is no edema, there is no cellulitis, no rash. Neurologic: Cranial nerves II through XII are intact. Patient continues to have some weakness of the right upper extremity and weakness of the right lower extremity. Patient has slurred speech again today. Psychiatric: Patients mood is calm and shows no sign of agitation. Genital: Deferred Rectal: Deferred Lab and Diagnostics Result Diagram: 08/18/16 0725 08/18/16 0725 X-Rays, CTs and MRIs PROCEDURE: MRI STROKE PROTOCOL ([id number]) Pre- and post-contrast brain MRI, non-contrast brain MR angiogram, pre- and postcontrast neck MR angiogram INDICATIONS: Dizziness,evaluate for stroke TECHNIQUE: Brain: Noncontrast axial T1 spin echo, axial T2 fast spin echo, sagittal and axial FLAIR, coronal T2 fast spin echo, axial gradient echo, axial diffusion and ADC through the brain. After the administration of contrast, axial 3D VIBE of the cranial vasculature and brain. Brain MRA: Non-contrast 3-D time of flight MR angiogram, with multiple maximum- intensity-projection (MIP) reformats performed. Neck MRA: Axial and sagittal TruFISP through the neck. Coronal dynamic MR angiogram during administration of contrast in the arterial and venous phases, with 3-dimenstional qjvcxga-chudrrnvt-cedkxfzhth (MIP) reformats constructed from subtraction images. COMPARISON: None. FINDINGS: Image quality: Excellent. BRAIN: CSF spaces: Ventricles are normal in size and shape. Basal cisterns are patent. No extra-axial fluid collections. Brain: No intracranial bleeds or mass effects. Mcdonald-white matter interface is normal. Diffusion weighted images show no acute ischemic insults. Punctate and confluent areas of increased T2 signal noted in the periventricular and subcortical white matter tracts compatible with mild to moderate chronic microvascular ischemic changes. Brainstem appears normal. Normal intravascular flow voids are present. No abnormal intracranial enhancement. Skull and face: Calvarial marrow signal is normal. Orbits appear normal. Sinuses: Sinuses and mastoids are clear. BRAIN MR ANGIOGRAM: Anterior circulation: Intracranial internal carotid arteries are normal in size and enhancement. The flow within the paired anterior cerebral arteries is normal and symmetric. The flow within the middle cerebral arteries is normal and symmetric. The anterior communicating artery is seen. No stenoses, occlusions, or aneurysms. Posterior circulation: The visualized portions of the vertebral arteries demonstrate normal caliber, and join to form a normal appearing basilar artery. The flow within the posterior cerebral arteries is normal and symmetric. No stenoses, occlusions, or aneurysms. NECK MR ANGIOGRAM: Carotids: Great vessels demonstrate a conventional anatomy as they arise from the aortic arch. The origins of the common carotid arteries appear patent. The calibers and courses of both common carotid arteries are normal. Mild atherosclerotic irregularity noted in the origins of the internal carotid arteries bilaterally which causes less than 50% stenosis. Posterior circulation: Atherosclerotic irregularity noted in the origins of the vertebral arteries bilaterally. Atherosclerotic disease causes high grade stenosis of the origin of the right vertebral artery. Atherosclerotic disease causes moderate stenosis of the origin of the left vertebral artery. More superior portions of both vertebral arteries demonstrate normal course and caliber, and join to form a normal appearing basilar artery. Miscellaneous: Subclavian arteries appear patent. Pre-contrast images through the neck show no soft tissue abnormalities. IMPRESSION: BRAIN MRI: 1. No acute intracranial disease process. 2. No areas of acute or chronic infarction. 3. Mild, diffuse volume loss. 4. Mild to moderate periventricular and subcortical white matter chronic microvascular ischemic changes. BRAIN MR ANGIOGRAM: Negative examination. NECK MR ANGIOGRAM: 1. Less than 50% stenosis of the internal carotid arteries bilaterally. 2. High-grade stenosis of the origin of the right vertebral artery. 3. Moderate stenosis of the origin of the left vertebral artery. The estimate of stenosis included in the report of the imaging study was calculated using the NASCET method Dictated by: Taya Castañeda MD, PhD on 08/14/2016 at 18:19 Approved by: Taya Castañeda MD, PhD on 08/14/2016 at 18:25 Cardiac Echo Impressions Echocardiogram Report Name: HECTOR GOODEN BStudy Date: 08/15/2016 Height: 64 in Hospital Exam Location: [facility] Weight: 143 lb Gender: Female BSA: 1.7 m2 : 1930 Age: 85 yrs BP: 180/75 mmHg Reason For Study: CVA Ordering Physician: HOSPITALIST [facility] Performed By: Brown Rivas Referring Physician: Dr. Anirudh Watson Interpretation Summary The ejection fraction is estimated to be 60-65%. There are no focal wall motion abnormalities. Left ventricular wall thickness is mildly increased. Injection of contrast documented no interatrial shunt. There is mild tricuspid regurgitation. The right ventricular systolic pressure is estimated at 30 mmHg assuming a right atrial pressure of 3 mm Hg. Assessment & Plan 85-year-old female past medical history severe hypertension presented with transient symptoms concerning for TIA or possible stroke. Ceftin on transfer from [facility] for further evaluation, medically stable condition: 1. CVA present of the time of admission with waxing and waning of symptoms after admission with recurrent episodes of right upper extremity and right lower extremity numbness, and now weakness. Patient continues to have slurred speech. - We will observe patient on stroke protocol, continuous telemetry monitoring in addition to neurologic checks every 4 hours - Repeat MRI via stroke protocol of head, showed a left alberto cerebrovascular accident. - Complete echocardiogram also fails to reveal source of patient's symptoms. - Fasting lipid panel and hemoglobin A1c also ordered and are found to be within normal range. - Permissive hypertension was allowed initially - Continue daily aspirin therapy. - Continue atorvastatin - I have consulted Dr. Terry Cintron of neurology and appreciate his time and expertise. Dr. Cintron recommends increasing losartan for improved blood pressure control at this point. - Dr. Cintron also recommends the following: "- Aspirin 81 mg daily - Increase atorvastatin to 80 mg daily - MRI noncontrast of brain - CT angio of head/neck - Repeat swallow study - Continue physical therapy - Maintain BP below 140/90" 2. Hypertension - As noted above rule out some degree of permissive hypertension - We will continue patient's home losartan, first dose to be provided on admission - Continue to monitor consider more aggressive control starting tomorrow. - I have consulted Dr. Terry Cintron of neurology and appreciate his time and expertise. Dr. Cintron recommends increasing losartan for improved blood pressure control at this point. We will begin losartan 50 mg by mouth twice a day and discontinue amlodipine given only once last evening. As amlodipine might be contributed to patient's continued dizziness. 3. Hypothyroidism - TSH is normal. - We will continue home dose of levothyroxine at this time 4. Mood disorder - We will continue patient's home medications of Wellbutrin and BuSpar Disposition: Patient will need placement in a [facility] facility for continued rehabilitation the patient she would prefer to go to [facility] in [place]. Pain Evaluation: Adequate Pain Control GI Prophylaxis: Not indicated VTE Mechanical Devices: Intermittant Pneumatic CD Resuscitation Status: CPR: Attempt Resuscitation Jerome Chavez MD Aug 18, 2016 22:21
[2016-08-19] VITALS (10 sets, daily range): BP systolic 133–196; BP diastolic 56–78; PULSE 58–70; RESP 16; O2SAT 94–99
[2016-08-19 07:00] LABS: BASOPHILS % (AUTO) 0.5 % (0-3); EOSINOPHILS % (AUTO) 3.6 % (0-5); MONOCYTES % (AUTO) 6.4 % (4-12); Mean Corpuscular Hemoglobin 32.2 pg (27.0-35.0); Mean Corpuscular Volume 101.6 fL (81-100); NEUTROPHILS % (AUTO) 26.3 % (40-74); Platelet Count 173 bil/L (150-400)
[2016-08-19 07:35] LABS: Magnesium 1.9 mg/dL (1.6-2.6)
[2016-08-19] MEDS: buPROPion SR 100 mg ER12 Tablet PO SCH ×2 (10:23→17:33)
[2016-08-19] MEDS: BusPIRone 15 mg Dividose Tablet PO SCH ×2 (10:23→20:38)
[2016-08-19] MEDS: Ondansetron 2 mg/mL 2 mL Inj IVPUSH PRN ×2 (10:29→19:02)
[2016-08-19] MEDS ORDERED: Magnesium Hydroxide 10 mL Oral Concentration PO ONE (11:20)
--- NOTE | 2016-08-19 23:39 | PCM.PNMED ---
Subjective Date of Service Aug 19, 2016 Subjective Patient continues to complain of significant dizziness and nausea in the mornings. She begins to feel better by afternoon. She is very weak in the mornings. And again this improves by afternoon. She has no other new complaints. And she has had no vomiting for the last 48 hours. Exam Vital Signs Vital Sign - Last Date Time Temp Pulse Resp B/P Pulse Ox O2 Delivery O2 Flow Rate FiO2 08/19/16 20:10 36.7 66 16 188/78 98 Room Air Intake and Output 08/18/16 08/18/16 08/19/16 Cumulative From/Thru 15:00 23:00 07:00 08/14/16 09:56 - 08/19/16 06:27 Intake Total 200 ml 554 ml 300 ml 3887 ml Output Total 350 ml 1300 ml 300 ml 5075 ml Balance -150 ml -746 ml 0 ml -1188 ml Intake Oral 200 ml 554 ml 300 ml 3540 ml IV Total 337 ml Tube Irrigant 10 ml Output Urine Total 350 ml 1300 ml 300 ml 5000 ml Emesis 75 ml # Voids 3 # Bowel Movements 0 0 0 1 Exam General: Patient appears tired and fatigued. Patient otherwise is in no apparent distress lying supine in bed. HEENT: Head is atraumatic and normocephalic. Eyes: Pupils are equally round and reactive to light and accommodation. Extraocular muscles are intact. Sclera are white, anicteric. Subconjunctival mucosa is pink. Ears and nose are unremarkable. Oropharynx: There is no mucosal lesions, there is no thrush, there is no pharyngitis. Neck: Is supple, there are no nodes, or masses or tenderness. Chest: Is clear to auscultation and percussion. There are no rales, rhonchi, wheezes or rubs. Heart: Rate, rhythm is regular. There is no murmur, rub or gallop. Abdomen: Good bowel sounds are present. Abdomen is soft, nontender, no organomegaly or masses were appreciated. Extremities: Are symmetrical and well perfused. There is no edema, there is no cellulitis, no rash. Neurologic: Cranial nerves II through XII are intact. Patient continues to have some weakness of the right upper extremity and weakness of the right lower extremity. Patient has slurred speech again today. Psychiatric: Patients mood is calm and shows no sign of agitation. Genital: Deferred Rectal: Deferred Lab and Diagnostics Result Diagram: 08/19/1661208/19/16612 X-Rays, CTs and MRIs PROCEDURE: MRI STROKE PROTOCOL ([id number]) Pre- and post-contrast brain MRI, non-contrast brain MR angiogram, pre- and postcontrast neck MR angiogram INDICATIONS: Dizziness,evaluate for stroke TECHNIQUE: Brain: Noncontrast axial T1 spin echo, axial T2 fast spin echo, sagittal and axial FLAIR, coronal T2 fast spin echo, axial gradient echo, axial diffusion and ADC through the brain. After the administration of contrast, axial 3D VIBE of the cranial vasculature and brain. Brain MRA: Non-contrast 3-D time of flight MR angiogram, with multiple maximum- intensity-projection (MIP) reformats performed. Neck MRA: Axial and sagittal TruFISP through the neck. Coronal dynamic MR angiogram during administration of contrast in the arterial and venous phases, with 3-dimenstional meqlhao-pxqnofrbp-feeuxzodeg (MIP) reformats constructed from subtraction images. COMPARISON: None. FINDINGS: Image quality: Excellent. BRAIN: CSF spaces: Ventricles are normal in size and shape. Basal cisterns are patent. No extra-axial fluid collections. Brain: No intracranial bleeds or mass effects. Mcdonald-white matter interface is normal. Diffusion weighted images show no acute ischemic insults. Punctate and confluent areas of increased T2 signal noted in the periventricular and subcortical white matter tracts compatible with mild to moderate chronic microvascular ischemic changes. Brainstem appears normal. Normal intravascular flow voids are present. No abnormal intracranial enhancement. Skull and face: Calvarial marrow signal is normal. Orbits appear normal. Sinuses: Sinuses and mastoids are clear. BRAIN MR ANGIOGRAM: Anterior circulation: Intracranial internal carotid arteries are normal in size and enhancement. The flow within the paired anterior cerebral arteries is normal and symmetric. The flow within the middle cerebral arteries is normal and symmetric. The anterior communicating artery is seen. No stenoses, occlusions, or aneurysms. Posterior circulation: The visualized portions of the vertebral arteries demonstrate normal caliber, and join to form a normal appearing basilar artery. The flow within the posterior cerebral arteries is normal and symmetric. No stenoses, occlusions, or aneurysms. NECK MR ANGIOGRAM: Carotids: Great vessels demonstrate a conventional anatomy as they arise from the aortic arch. The origins of the common carotid arteries appear patent. The calibers and courses of both common carotid arteries are normal. Mild atherosclerotic irregularity noted in the origins of the internal carotid arteries bilaterally which causes less than 50% stenosis. Posterior circulation: Atherosclerotic irregularity noted in the origins of the vertebral arteries bilaterally. Atherosclerotic disease causes high grade stenosis of the origin of the right vertebral artery. Atherosclerotic disease causes moderate stenosis of the origin of the left vertebral artery. More superior portions of both vertebral arteries demonstrate normal course and caliber, and join to form a normal appearing basilar artery. Miscellaneous: Subclavian arteries appear patent. Pre-contrast images through the neck show no soft tissue abnormalities. IMPRESSION: BRAIN MRI: 1. No acute intracranial disease process. 2. No areas of acute or chronic infarction. 3. Mild, diffuse volume loss. 4. Mild to moderate periventricular and subcortical white matter chronic microvascular ischemic changes. BRAIN MR ANGIOGRAM: Negative examination. NECK MR ANGIOGRAM: 1. Less than 50% stenosis of the internal carotid arteries bilaterally. 2. High-grade stenosis of the origin of the right vertebral artery. 3. Moderate stenosis of the origin of the left vertebral artery. The estimate of stenosis included in the report of the imaging study was calculated using the NASCET method Dictated by: Taya Castañeda MD, PhD on 08/14/2016 at 18:19 Approved by: Taya Castañeda MD, PhD on 08/14/2016 at 18:25 Cardiac Echo Impressions Echocardiogram Report Name: HECTOR GOODEN BStudy Date: 08/15/2016 Height: 64 in Hospital Exam Location: [facility] Weight: 143 lb Gender: Female BSA: 1.7 m2 : 1930 Age: 85 yrs BP: 180/75 mmHg Reason For Study: CVA Ordering Physician: HOSPITALIST [facility] Performed By: Brown Rivas Referring Physician: Dr. Anirudh Watson Interpretation Summary The ejection fraction is estimated to be 60-65%. There are no focal wall motion abnormalities. Left ventricular wall thickness is mildly increased. Injection of contrast documented no interatrial shunt. There is mild tricuspid regurgitation. The right ventricular systolic pressure is estimated at 30 mmHg assuming a right atrial pressure of 3 mm Hg. Assessment & Plan 85-year-old female past medical history severe hypertension presented with transient symptoms concerning for TIA or possible stroke. Ceftin on transfer from [facility] for further evaluation, medically stable condition: 1. CVA present of the time of admission with waxing and waning of symptoms after admission with recurrent episodes of right upper extremity and right lower extremity numbness, and now weakness. Patient continues to have slurred speech. - We will observe patient on stroke protocol, continuous telemetry monitoring in addition to neurologic checks every 4 hours - Repeat MRI via stroke protocol of head, showed a left alberto cerebrovascular accident. - Complete echocardiogram also fails to reveal source of patient's symptoms. - Fasting lipid panel and hemoglobin A1c also ordered and are found to be within normal range. - Permissive hypertension was allowed initially - Continue daily aspirin therapy. - Continue atorvastatin - I have consulted Dr. Terry Cintron of neurology and appreciate his time and expertise. Dr. Cintron recommends increasing losartan for improved blood pressure control at this point. - Dr. Cintron also recommends the following: "- Aspirin 81 mg daily - Increase atorvastatin to 80 mg daily - MRI noncontrast of brain - CT angio of head/neck - Repeat swallow study - Continue physical therapy - Maintain BP below 140/90" 2. Hypertension - As noted above rule out some degree of permissive hypertension - We will continue patient's home losartan, first dose to be provided on admission - Continue to monitor consider more aggressive control starting tomorrow. - I have consulted Dr. Terry Cintron of neurology and appreciate his time and expertise. Dr. Cintron recommends increasing losartan for improved blood pressure control at this point. We will begin losartan 50 mg by mouth twice a day and discontinue amlodipine given only once last evening. As amlodipine might be contributed to patient's continued dizziness. 3. Hypothyroidism - TSH is normal. - We will continue home dose of levothyroxine at this time 4. Mood disorder - We will continue patient's home medications of Wellbutrin and BuSpar Disposition: Patient will need placement in a halfway facility for continued rehabilitation the patient she would prefer to go to [facility] in [place]. Pain Evaluation: Adequate Pain Control GI Prophylaxis: Not indicated VTE Mechanical Devices: Intermittant Pneumatic CD Resuscitation Status: CPR: Attempt Resuscitation Jerome Chavez MD Aug 19, 2016 23:39
[2016-08-20] VITALS (8 sets, daily range): BP systolic 122–191; BP diastolic 65–79; PULSE 59–90; RESP 16; O2SAT 96–99
[2016-08-20 07:00] LABS: BASOPHILS % (AUTO) 0.4 % (0-3); EOSINOPHILS % (AUTO) 3.4 % (0-5); MONOCYTES % (AUTO) 5.1 % (4-12); Mean Corpuscular Hemoglobin 31.7 pg (27.0-35.0); Mean Corpuscular Volume 102.3 fL (81-100); NEUTROPHILS % (AUTO) 31.2 % (40-74); Platelet Count 172 bil/L (150-400)
[2016-08-20 07:18] LABS: Magnesium 2.2 mg/dL (1.6-2.6)
[2016-08-20] MEDS: Ondansetron 2 mg/mL 2 mL Inj IVPUSH PRN ×2 (08:21→15:40)
[2016-08-20] MEDS: BusPIRone 15 mg Dividose Tablet PO SCH ×2 (12:00→22:08)
[2016-08-20] MEDS ORDERED: Promethazine 12.5 mg/50 mL D5W IV PRN ×2 (12:30)
[2016-08-20] MEDS ORDERED: 0.9% Sodium Chloride 0 ML ONE (12:31)
[2016-08-20 12:40] LABS: APPEARANCE,URINE HAZY (CLEAR,HAZY); COLOR,URINE YELLOW (YELLOW); PH,URINE 7.5 (5.0-8.0)
[2016-08-20 12:41] LABS: OCCULT BLOOD,URINE NEGATIVE (NEGATIVE); UROBILINOGEN,URINE NORMAL (NORMAL)
[2016-08-20] MEDS ORDERED: Promethazine Inj 12.5 MG in 0.9% Sodium Chloride 50 ML IV PRN (13:00)
[2016-08-20] MEDS: buPROPion SR 100 mg ER12 Tablet PO SCH ×2 (14:14→17:44)
--- NOTE | 2016-08-20 23:49 | PCM.PNMED ---
Subjective Date of Service Aug 20, 2016 Subjective Patient feels very poorly this morning and worse then she has a last several. She complains of dry heaves. She also plays of dizziness and very poor appetite. All she ate all morning was part of a wilbert cracker. Patient has no complaints of fever, chills or diaphoresis. She believes this may be vertigo presenting as nausea. Exam Vital Signs Vital Sign - Last Date Time Temp Pulse Resp B/P Pulse Ox O2 Delivery O2 Flow Rate FiO2 08/20/16 21:21 36.4 68 16 165/67 98 Room Air Intake and Output 08/19/16 08/19/16 08/20/16 Cumulative From/Thru 15:00 23:00 07:00 08/14/16 09:56 - 08/20/16 06:29 Intake Total 686 ml 300 ml 4873 ml Output Total 5075 ml Balance 686 ml 300 ml -202 ml Intake Oral 686 ml 300 ml 4526 ml IV Total 337 ml Tube Irrigant 10 ml Output Urine Total 5000 ml Emesis 75 ml # Voids 2 2 7 # Bowel Movements 0 0 1 Exam General: Patient appears tired and fatigued. Patient has an emesis bag on her chest and a partially Gram cracker. She is laying in the darkened room supine until 2 PM in the afternoon. HEENT: Head is atraumatic and normocephalic. Eyes: Pupils are equally round and reactive to light and accommodation. Extraocular muscles are intact. Sclera are white, anicteric. Subconjunctival mucosa is pink. Ears and nose are unremarkable. Oropharynx: There is no mucosal lesions, there is no thrush, there is no pharyngitis. Neck: Is supple, there are no nodes, or masses or tenderness. Chest: Is clear to auscultation and percussion. There are no rales, rhonchi, wheezes or rubs. Heart: Rate, rhythm is regular. There is no murmur, rub or gallop. Abdomen: Good bowel sounds are present. Abdomen is soft, nontender, no organomegaly or masses were appreciated. Extremities: Are symmetrical and well perfused. There is no edema, there is no cellulitis, no rash. Neurologic: Cranial nerves II through XII are intact. Patient continues to have some weakness of the right upper extremity and weakness of the right lower extremity. Patient has slurred speech again today. However, the speech appears to be slightly improved. Psychiatric: Patients mood is calm and shows no sign of agitation. Genital: Deferred Rectal: Deferred Lab and Diagnostics Result Diagram: 08/20/16 0640 08/20/16 0640 X-Rays, CTs and MRIs PROCEDURE: MRI STROKE PROTOCOL ([id number]) Pre- and post-contrast brain MRI, non-contrast brain MR angiogram, pre- and postcontrast neck MR angiogram INDICATIONS: Dizziness,evaluate for stroke TECHNIQUE: Brain: Noncontrast axial T1 spin echo, axial T2 fast spin echo, sagittal and axial FLAIR, coronal T2 fast spin echo, axial gradient echo, axial diffusion and ADC through the brain. After the administration of contrast, axial 3D VIBE of the cranial vasculature and brain. Brain MRA: Non-contrast 3-D time of flight MR angiogram, with multiple maximum- intensity-projection (MIP) reformats performed. Neck MRA: Axial and sagittal TruFISP through the neck. Coronal dynamic MR angiogram during administration of contrast in the arterial and venous phases, with 3-dimenstional ifofexc-ipokijcll-etjhbsnwql (MIP) reformats constructed from subtraction images. COMPARISON: None. FINDINGS: Image quality: Excellent. BRAIN: CSF spaces: Ventricles are normal in size and shape. Basal cisterns are patent. No extra-axial fluid collections. Brain: No intracranial bleeds or mass effects. Mcdonald-white matter interface is normal. Diffusion weighted images show no acute ischemic insults. Punctate and confluent areas of increased T2 signal noted in the periventricular and subcortical white matter tracts compatible with mild to moderate chronic microvascular ischemic changes. Brainstem appears normal. Normal intravascular flow voids are present. No abnormal intracranial enhancement. Skull and face: Calvarial marrow signal is normal. Orbits appear normal. Sinuses: Sinuses and mastoids are clear. BRAIN MR ANGIOGRAM: Anterior circulation: Intracranial internal carotid arteries are normal in size and enhancement. The flow within the paired anterior cerebral arteries is normal and symmetric. The flow within the middle cerebral arteries is normal and symmetric. The anterior communicating artery is seen. No stenoses, occlusions, or aneurysms. Posterior circulation: The visualized portions of the vertebral arteries demonstrate normal caliber, and join to form a normal appearing basilar artery. The flow within the posterior cerebral arteries is normal and symmetric. No stenoses, occlusions, or aneurysms. NECK MR ANGIOGRAM: Carotids: Great vessels demonstrate a conventional anatomy as they arise from the aortic arch. The origins of the common carotid arteries appear patent. The calibers and courses of both common carotid arteries are normal. Mild atherosclerotic irregularity noted in the origins of the internal carotid arteries bilaterally which causes less than 50% stenosis. Posterior circulation: Atherosclerotic irregularity noted in the origins of the vertebral arteries bilaterally. Atherosclerotic disease causes high grade stenosis of the origin of the right vertebral artery. Atherosclerotic disease causes moderate stenosis of the origin of the left vertebral artery. More superior portions of both vertebral arteries demonstrate normal course and caliber, and join to form a normal appearing basilar artery. Miscellaneous: Subclavian arteries appear patent. Pre-contrast images through the neck show no soft tissue abnormalities. IMPRESSION: BRAIN MRI: 1. No acute intracranial disease process. 2. No areas of acute or chronic infarction. 3. Mild, diffuse volume loss. 4. Mild to moderate periventricular and subcortical white matter chronic microvascular ischemic changes. BRAIN MR ANGIOGRAM: Negative examination. NECK MR ANGIOGRAM: 1. Less than 50% stenosis of the internal carotid arteries bilaterally. 2. High-grade stenosis of the origin of the right vertebral artery. 3. Moderate stenosis of the origin of the left vertebral artery. The estimate of stenosis included in the report of the imaging study was calculated using the NASCET method Dictated by: Taya Castañeda MD, PhD on 08/14/2016 at 18:19 Approved by: Taya Castañeda MD, PhD on 08/14/2016 at 18:25 Cardiac Echo Impressions Echocardiogram Report Name: HECTOR GOODEN BStudy Date: 08/15/2016 Height: 64 in Hospital Exam Location: [facility] Weight: 143 lb Gender: Female BSA: 1.7 m2 : 1930 Age: 85 yrs BP: 180/75 mmHg Reason For Study: CVA Ordering Physician: HOSPITALIST [facility] Performed By: Brown Rivas Referring Physician: Dr. Anirudh Watson Interpretation Summary The ejection fraction is estimated to be 60-65%. There are no focal wall motion abnormalities. Left ventricular wall thickness is mildly increased. Injection of contrast documented no interatrial shunt. There is mild tricuspid regurgitation. The right ventricular systolic pressure is estimated at 30 mmHg assuming a right atrial pressure of 3 mm Hg. Assessment & Plan 85-year-old female past medical history severe hypertension presented with transient symptoms concerning for TIA or possible stroke. Ceftin on transfer from [facility] for further evaluation, medically stable condition: 1. CVA present of the time of admission with waxing and waning of symptoms after admission with recurrent episodes of right upper extremity and right lower extremity numbness, and now weakness. Patient continues to have slurred speech. - We will observe patient on stroke protocol, continuous telemetry monitoring in addition to neurologic checks every 4 hours - Repeat MRI via stroke protocol of head, showed a left alberto cerebrovascular accident. - Complete echocardiogram also fails to reveal source of patient's symptoms. - Fasting lipid panel and hemoglobin A1c also ordered and are found to be within normal range. - Permissive hypertension was allowed initially - Continue daily aspirin therapy. - Continue atorvastatin - I have consulted Dr. Terry Cintron of neurology and appreciate his time and expertise. Dr. Cintron recommends increasing losartan for improved blood pressure control at this point. - Dr. Cintron also recommends the following: "- Aspirin 81 mg daily - Increase atorvastatin to 80 mg daily - MRI noncontrast of brain - CT angio of head/neck - Repeat swallow study - Continue physical therapy - Maintain BP below 140/90" 2. Hypertension - As noted above rule out some degree of permissive hypertension - We will continue patient's home losartan at 4 times per normal home dose. - Continue to monitor consider more aggressive control starting tomorrow. - I have consulted Dr. Terry Cintron of neurology and appreciate his time and expertise. Dr. Cintron recommended increasing losartan for improved blood pressure control at this point. We will began losartan 50 mg by mouth twice a day and discontinue amlodipine given only once last evening. As amlodipine might be contributed to patient's continued dizziness. 3. Hypothyroidism - TSH is normal. - We will continue home dose of levothyroxine at this time 4. Mood disorder - We will continue patient's home medications of Wellbutrin and BuSpar 5. Possible vertigo presenting as nausea - We will start meclizine - If situation persists may consider repeat MRI of the brain - May need to reconsult neurology. - We will check UA urine C&S Disposition: Patient will need placement in a [facility] facility for continued rehabilitation the patient she would prefer to go to [facility] in [place]. Patient is not stable for discharge at this time Pain Evaluation: Adequate Pain Control GI Prophylaxis: Not indicated VTE Mechanical Devices: Intermittant Pneumatic CD Resuscitation Status: CPR: Attempt Resuscitation ScottJerome MD Aug 20, 2016 23:49
[2016-08-21 00:48] VITALS: BP 148/67; PULSE 74; RESP 16; O2SAT 97
[2016-08-21 05:17] VITALS: BP 142/76; PULSE 67; RESP 16; O2SAT 98
[2016-08-21 06:54] LABS: BASOPHILS % (AUTO) 0.4 % (0-3); EOSINOPHILS % (AUTO) 3.1 % (0-5); MONOCYTES % (AUTO) 4.8 % (4-12); Mean Corpuscular Volume 102.4 fL (81-100); NEUTROPHILS % (AUTO) 31.4 % (40-74); Platelet Count 197 bil/L (150-400)
[2016-08-21 08:20] LABS: Magnesium 2.3 mg/dL (1.6-2.6)
[2016-08-21 08:45] LABS: ERYTHROCYTE SEDIMENTATION RATE 23 mm/hr (0-40)
[2016-08-21] MEDS: buPROPion SR 100 mg ER12 Tablet PO SCH ×2 (08:52→17:54)
[2016-08-21] MEDS: BusPIRone 15 mg Dividose Tablet PO SCH ×2 (08:54→20:41)
[2016-08-21] MEDS ORDERED: Ampicillin-Sulbactam Inj 3,000 MG in 0.9% Sodium Chloride 100 ML IV SCH (08:55)
--- NOTE | 2016-08-21 09:10 | DRSVH ---
PROCEDURE: X-RAY CHEST ONE VIEW, PORTABLE ([id number]) INDICATIONS: Possible Aspiration TECHNIQUE: One view of the chest was acquired. COMPARISON: Outside Film, CR, XR CHEST 1VW (PORTABLE), 08/14/2016, 1:25. FINDINGS: Surgical changes and devices: None. Lungs and pleura: No pleural effusions or pneumothorax. Lungs are clear. Mediastinum: Mediastinal contours appear normal. Heart size is normal. Bones and chest wall: No suspicious bony lesions. Overlying soft tissues appear unremarkable. Prio r kyphoplasty within the lower thoracic/upper lumbar spine. IMPRESSION: No acute cardiopulmonary disease. Dictated by: Pascual Noble Kristy Interpreted: Ahmet Levi MD on 08/21/2016 at 9:08 Transcribed by: CATALINA on 08/21/2016 at 9:09 Approved by: Ahmet Levi M.D. on 08/21/2016 at 10:07
[2016-08-21 09:51] VITALS: BP 113/66; PULSE 72; RESP 18; O2SAT 96
[2016-08-21 13:09] VITALS: BP 119/69; PULSE 64; RESP 18; O2SAT 96
[2016-08-21 17:42] VITALS: BP 139/75; PULSE 66; RESP 18; O2SAT 95
[2016-08-21] MEDS: Ampicillin-Sulbactam Inj 3,000 MG in 0.9% Sodium Chloride 100 ML IV SCH ×2 (17:55→19:21)
--- NOTE | 2016-08-21 20:41 | DRSVH ---
PROCEDURE: MRI BRAIN WITHOUT CONTRAST ([id number]) INDICATIONS: Recent stroke, worsening dizziness TECHNIQUE: Non-contrast axial T1 spin echo, axial T2 fast spin echo, sagittal and axial FLAIR, coronal T2 fast s pin echo, axial gradient echo, axial diffusion and ADC through the brain. COMPARISON: [facility], MR, MR BRAIN WO CON, 08/16/2016, 20:57. FINDINGS: Image quality: Excellent. CSF spaces: Ventricles appear symmetric in size and shape. Basal cisterns are patent. No extra-axi al fluid collections. Brain: There is restricted diffusion in the left alberto and associated T2/LEFT hyperintensity, consist ent with subacute infarct. The area of abnormal diffusion signal measures 8 x 12 mm. Compared to the last exam on 08/16/2016, the area of involvement is slightly increased and there is increasing cytotox ic edema. No intracranial bleeds or mass effects. There is mild/moderate cerebral volume loss for ag e. There are moderate periventricular and deep white matter chronic small vessel ischemic changes. Brainstem appears normal. Normal intravascular flow voids are present. Skull and face: Calvarial bone marrow is normal in signal. Orbits are normal. Sinuses: Sinuses and mastoids are clear. IMPRESSION: 1. Evolution of subacute infarct involving the left alberto. No evidence for hemorrhagic transformation. Increased cytotoxic edema is seen in the infarcted area. 2. Cerebral volume loss and chronic microvascular ischemic changes. Dictated by: Ahmet Levi M.D. on 08/21/2016 at 20:33 Approved by: Ahmet Levi M.D. on 08/21/2016 at 20:39
[2016-08-21 21:11] VITALS: BP 146/74; PULSE 74; RESP 18; O2SAT 96
--- NOTE | 2016-08-21 23:29 | PCM.PNMED ---
Subjective Date of Service Aug 21, 2016 Subjective Patient is feeling a little bit better today and she was able to eat breakfast. Is feeling stronger overall. She has no new complaints. Although whence the speech therapist Tasneem spoke with her patient stated that sometimes it feels like liquid goes down "the wrong pipe". Exam Vital Signs Vital Sign - Last Date Time Temp Pulse Resp B/P Pulse Ox O2 Delivery O2 Flow Rate FiO2 08/21/16 21:11 36.8 74 18 146/74 96 Room Air Intake and Output 08/20/16 08/20/16 08/21/16 Cumulative From/Thru 15:00 23:00 07:00 08/14/16 09:56 - 08/21/16 06:39 Intake Total 300 ml 0 ml 5173 ml Output Total 100 ml 5175 ml Balance 200 ml 0 ml -2 ml Intake Oral 300 ml 0 ml 4826 ml IV Total 337 ml Tube Irrigant 10 ml Output Urine Total 100 ml 5100 ml Emesis 75 ml # Voids 4 3 14 # Bowel Movements 0 0 1 Exam General: Patient appears much brighter and alert and interactive today. She is in much better spirits and a breakfast today. HEENT: Head is atraumatic and normocephalic. Eyes: Pupils are equally round and reactive to light and accommodation. Extraocular muscles are intact. Sclera are white, anicteric. Subconjunctival mucosa is pink. Ears and nose are unremarkable. Oropharynx: There is no mucosal lesions, there is no thrush, there is no pharyngitis. Neck: Is supple, there are no nodes, or masses or tenderness. Chest: Is clear to auscultation and percussion. There are no rales, rhonchi, wheezes or rubs. Heart: Rate, rhythm is regular. There is no murmur, rub or gallop. Abdomen: Good bowel sounds are present. Abdomen is soft, nontender, no organomegaly or masses were appreciated. Extremities: Are symmetrical and well perfused. There is no edema, there is no cellulitis, no rash. Neurologic: Cranial nerves II through XII are intact. Patient continues to have some weakness of the right upper extremity and weakness of the right lower extremity. However her weakness is improved. Patient has slurred speech again today. However, the speech appears to be slightly improved again today. Psychiatric: Patients mood is calm and shows no sign of agitation. The patient is in much better spirits. Genital: Deferred Rectal: Deferred Lab and Diagnostics Result Diagram: 08/21/16 0635 08/21/16 0635 X-Rays, CTs and MRIs PROCEDURE: MRI STROKE PROTOCOL ([id number]) Pre- and post-contrast brain MRI, non-contrast brain MR angiogram, pre- and postcontrast neck MR angiogram INDICATIONS: Dizziness,evaluate for stroke TECHNIQUE: Brain: Noncontrast axial T1 spin echo, axial T2 fast spin echo, sagittal and axial FLAIR, coronal T2 fast spin echo, axial gradient echo, axial diffusion and ADC through the brain. After the administration of contrast, axial 3D VIBE of the cranial vasculature and brain. Brain MRA: Non-contrast 3-D time of flight MR angiogram, with multiple maximum- intensity-projection (MIP) reformats performed. Neck MRA: Axial and sagittal TruFISP through the neck. Coronal dynamic MR angiogram during administration of contrast in the arterial and venous phases, with 3-dimenstional bdwkxtf-zmtwgdbxe-cojejykkfm (MIP) reformats constructed from subtraction images. COMPARISON: None. FINDINGS: Image quality: Excellent. BRAIN: CSF spaces: Ventricles are normal in size and shape. Basal cisterns are patent. No extra-axial fluid collections. Brain: No intracranial bleeds or mass effects. Mcdonald-white matter interface is normal. Diffusion weighted images show no acute ischemic insults. Punctate and confluent areas of increased T2 signal noted in the periventricular and subcortical white matter tracts compatible with mild to moderate chronic microvascular ischemic changes. Brainstem appears normal. Normal intravascular flow voids are present. No abnormal intracranial enhancement. Skull and face: Calvarial marrow signal is normal. Orbits appear normal. Sinuses: Sinuses and mastoids are clear. BRAIN MR ANGIOGRAM: Anterior circulation: Intracranial internal carotid arteries are normal in size and enhancement. The flow within the paired anterior cerebral arteries is normal and symmetric. The flow within the middle cerebral arteries is normal and symmetric. The anterior communicating artery is seen. No stenoses, occlusions, or aneurysms. Posterior circulation: The visualized portions of the vertebral arteries demonstrate normal caliber, and join to form a normal appearing basilar artery. The flow within the posterior cerebral arteries is normal and symmetric. No stenoses, occlusions, or aneurysms. NECK MR ANGIOGRAM: Carotids: Great vessels demonstrate a conventional anatomy as they arise from the aortic arch. The origins of the common carotid arteries appear patent. The calibers and courses of both common carotid arteries are normal. Mild atherosclerotic irregularity noted in the origins of the internal carotid arteries bilaterally which causes less than 50% stenosis. Posterior circulation: Atherosclerotic irregularity noted in the origins of the vertebral arteries bilaterally. Atherosclerotic disease causes high grade stenosis of the origin of the right vertebral artery. Atherosclerotic disease causes moderate stenosis of the origin of the left vertebral artery. More superior portions of both vertebral arteries demonstrate normal course and caliber, and join to form a normal appearing basilar artery. Miscellaneous: Subclavian arteries appear patent. Pre-contrast images through the neck show no soft tissue abnormalities. IMPRESSION: BRAIN MRI: 1. No acute intracranial disease process. 2. No areas of acute or chronic infarction. 3. Mild, diffuse volume loss. 4. Mild to moderate periventricular and subcortical white matter chronic microvascular ischemic changes. BRAIN MR ANGIOGRAM: Negative examination. NECK MR ANGIOGRAM: 1. Less than 50% stenosis of the internal carotid arteries bilaterally. 2. High-grade stenosis of the origin of the right vertebral artery. 3. Moderate stenosis of the origin of the left vertebral artery. The estimate of stenosis included in the report of the imaging study was calculated using the NASCET method Dictated by: Taya Castañeda MD, PhD on 08/14/2016 at 18:19 Approved by: Taya Castañeda MD, PhD on 08/14/2016 at 18:25 Cardiac Echo Impressions Echocardiogram Report Name: HECTOR GOODEN BStudy Date: 08/15/2016 Height: 64 in Hospital Exam Location: [facility] Weight: 143 lb Gender: Female BSA: 1.7 m2 : 1930 Age: 85 yrs BP: 180/75 mmHg Reason For Study: CVA Ordering Physician: HOSPITALIST [facility] Performed By: Brown Rivas Referring Physician: Dr. Anirudh Watson Interpretation Summary The ejection fraction is estimated to be 60-65%. There are no focal wall motion abnormalities. Left ventricular wall thickness is mildly increased. Injection of contrast documented no interatrial shunt. There is mild tricuspid regurgitation. The right ventricular systolic pressure is estimated at 30 mmHg assuming a right atrial pressure of 3 mm Hg. Assessment & Plan 85-year-old female past medical history severe hypertension presented with transient symptoms concerning for TIA or possible stroke. Seun on transfer from [facility] for further evaluation, medically stable condition: 1. CVA present of the time of admission with waxing and waning of symptoms after admission with recurrent episodes of right upper extremity and right lower extremity numbness, and now weakness. Patient continues to have slurred speech. - We will observe patient on stroke protocol, continuous telemetry monitoring in addition to neurologic checks every 4 hours - Repeat MRI via stroke protocol of head, showed a left alberto cerebrovascular accident. - Complete echocardiogram also fails to reveal source of patient's symptoms. - Fasting lipid panel and hemoglobin A1c also ordered and are found to be within normal range. - Permissive hypertension was allowed initially - Continue daily aspirin therapy. - Continue atorvastatin - I have consulted Dr. Terry Cintron of neurology and appreciate his time and expertise. Dr. Cintron recommends increasing losartan for improved blood pressure control at this point. - Dr. Cintron also recommends the following: "- Aspirin 81 mg daily - Increase atorvastatin to 80 mg daily - MRI noncontrast of brain - CT angio of head/neck - Repeat swallow study - Continue physical therapy - Maintain BP below 140/90" 2. Hypertension - As noted above rule out some degree of permissive hypertension - We will continue patient's home losartan at 4 times per normal home dose. - Continue to monitor consider more aggressive control starting tomorrow. - I have consulted Dr. Terry Cintron of neurology and appreciate his time and expertise. Dr. Cintron recommended increasing losartan for improved blood pressure control at this point. We will began losartan 50 mg by mouth twice a day and discontinue amlodipine given only once last evening. As amlodipine might be contributed to patient's continued dizziness. 3. Hypothyroidism - TSH is normal. - We will continue home dose of levothyroxine at this time 4. Mood disorder - We will continue patient's home medications of Wellbutrin and BuSpar 5. Possible vertigo presenting as nausea - We have started meclizine and this appears to improve patient's condition - Neurology has ordered a repeat MRI of the brain - We have reconsulted neurology. - We checked UA urine C&S which appears to show an enterococcal urinary tract infection. Therefore, will order IV Unasyn pending final culture results. Disposition: Patient will need placement in a senior living facility for continued rehabilitation the patient she would prefer to go to [facility]. Patient is not stable for discharge at this time Pain Evaluation: Adequate Pain Control GI Prophylaxis: Not indicated VTE Mechanical Devices: Intermittant Pneumatic CD Resuscitation Status: CPR: Attempt Resuscitation ScottJreome MD Aug 21, 2016 23:29
[2016-08-22] VITALS (12 sets, daily range): BP systolic 120–206; BP diastolic 64–76; PULSE 60–84; RESP 17–18; O2SAT 96–99
[2016-08-22] MEDS: Ampicillin-Sulbactam Inj 3,000 MG in 0.9% Sodium Chloride 100 ML IV SCH ×5 (00:52→23:55)
[2016-08-22 05:59] LABS: BASOPHILS % (AUTO) 0.3 % (0-3); EOSINOPHILS % (AUTO) 3.3 % (0-5); MONOCYTES % (AUTO) 5.6 % (4-12); Mean Corpuscular Hemoglobin 31.8 pg (27.0-35.0); Mean Corpuscular Volume 102.6 fL (81-100); NEUTROPHILS % (AUTO) 28.1 % (40-74); Platelet Count 188 bil/L (150-400)
[2016-08-22 06:21] LABS: Magnesium 2.1 mg/dL (1.6-2.6)
[2016-08-22] MEDS: BusPIRone 15 mg Dividose Tablet PO SCH ×2 (07:53→20:41)
[2016-08-22] MEDS: buPROPion SR 100 mg ER12 Tablet PO SCH ×2 (07:55→17:28)
[2016-08-22] MEDS: Ondansetron 2 mg/mL 2 mL Inj IVPUSH PRN (10:15)
[2016-08-23 00:35] VITALS: BP 153/73; PULSE 66; RESP 18; O2SAT 96
--- NOTE | 2016-08-23 00:40 | PCM.PNMED ---
Subjective Date of Service Aug 23, 2016 Subjective Patient does not feel as well today she did yesterday. She feels that her swallowing is a little worse and so to speech therapy. She feels that her speech is slightly worse. She also feels that her weakness in her right upper extremity and right lower extremity is a little worse as does physical therapy. However she did eat breakfast today and has less dizziness. She has no other new complaints. Exam Vital Signs Vital Sign - Last Date Time Temp Pulse Resp B/P Pulse Ox O2 Delivery O2 Flow Rate FiO2 08/22/16 22:18 165/74 08/22/16 21:04 37.1 70 17 97 Room Air Intake and Output 08/22/16 08/22/16 08/23/16 Cumulative From/Thru 15:00 23:00 07:00 08/14/16 09:56 - 08/22/16 20:54 Intake Total 1714 ml 7857 ml Output Total 5175 ml Balance 1714 ml 2682 ml Intake Oral 1180 ml 6856 ml IV Total 534 ml 991 ml Tube Irrigant 10 ml Output Urine Total 5100 ml Emesis 75 ml # Voids 2 23 # Bowel Movements 0 1 Exam General: Patient appears much brighter and alert and interactive today. She is in much better spirits and a breakfast today. HEENT: Head is atraumatic and normocephalic. Eyes: Pupils are equally round and reactive to light and accommodation. Extraocular muscles are intact. Sclera are white, anicteric. Subconjunctival mucosa is pink. Ears and nose are unremarkable. Oropharynx: There is no mucosal lesions, there is no thrush, there is no pharyngitis. Neck: Is supple, there are no nodes, or masses or tenderness. Chest: Is clear to auscultation and percussion. There are no rales, rhonchi, wheezes or rubs. Heart: Rate, rhythm is regular. There is no murmur, rub or gallop. Abdomen: Good bowel sounds are present. Abdomen is soft, nontender, no organomegaly or masses were appreciated. Extremities: Are symmetrical and well perfused. There is no edema, there is no cellulitis, no rash. Neurologic: Cranial nerves II through XII are intact. Patient continues to have some weakness of the right upper extremity and weakness of the right lower extremity. Patient has slurred speech again today. Psychiatric: Patients mood is calm and she shows no sign of agitation. The patient is in much better spirits. Genital: Deferred Rectal: Deferred Lab and Diagnostics Result Diagram: 08/22/1645 08/22/1645 X-Rays, CTs and MRIs PROCEDURE: MRI STROKE PROTOCOL ([id number]) Pre- and post-contrast brain MRI, non-contrast brain MR angiogram, pre- and postcontrast neck MR angiogram INDICATIONS: Dizziness,evaluate for stroke TECHNIQUE: Brain: Noncontrast axial T1 spin echo, axial T2 fast spin echo, sagittal and axial FLAIR, coronal T2 fast spin echo, axial gradient echo, axial diffusion and ADC through the brain. After the administration of contrast, axial 3D VIBE of the cranial vasculature and brain. Brain MRA: Non-contrast 3-D time of flight MR angiogram, with multiple maximum- intensity-projection (MIP) reformats performed. Neck MRA: Axial and sagittal TruFISP through the neck. Coronal dynamic MR angiogram during administration of contrast in the arterial and venous phases, with 3-dimenstional xtwvack-thvplpigg-nzfgmzqwiv (MIP) reformats constructed from subtraction images. COMPARISON: None. FINDINGS: Image quality: Excellent. BRAIN: CSF spaces: Ventricles are normal in size and shape. Basal cisterns are patent. No extra-axial fluid collections. Brain: No intracranial bleeds or mass effects. Mcdonald-white matter interface is normal. Diffusion weighted images show no acute ischemic insults. Punctate and confluent areas of increased T2 signal noted in the periventricular and subcortical white matter tracts compatible with mild to moderate chronic microvascular ischemic changes. Brainstem appears normal. Normal intravascular flow voids are present. No abnormal intracranial enhancement. Skull and face: Calvarial marrow signal is normal. Orbits appear normal. Sinuses: Sinuses and mastoids are clear. BRAIN MR ANGIOGRAM: Anterior circulation: Intracranial internal carotid arteries are normal in size and enhancement. The flow within the paired anterior cerebral arteries is normal and symmetric. The flow within the middle cerebral arteries is normal and symmetric. The anterior communicating artery is seen. No stenoses, occlusions, or aneurysms. Posterior circulation: The visualized portions of the vertebral arteries demonstrate normal caliber, and join to form a normal appearing basilar artery. The flow within the posterior cerebral arteries is normal and symmetric. No stenoses, occlusions, or aneurysms. NECK MR ANGIOGRAM: Carotids: Great vessels demonstrate a conventional anatomy as they arise from the aortic arch. The origins of the common carotid arteries appear patent. The calibers and courses of both common carotid arteries are normal. Mild atherosclerotic irregularity noted in the origins of the internal carotid arteries bilaterally which causes less than 50% stenosis. Posterior circulation: Atherosclerotic irregularity noted in the origins of the vertebral arteries bilaterally. Atherosclerotic disease causes high grade stenosis of the origin of the right vertebral artery. Atherosclerotic disease causes moderate stenosis of the origin of the left vertebral artery. More superior portions of both vertebral arteries demonstrate normal course and caliber, and join to form a normal appearing basilar artery. Miscellaneous: Subclavian arteries appear patent. Pre-contrast images through the neck show no soft tissue abnormalities. IMPRESSION: BRAIN MRI: 1. No acute intracranial disease process. 2. No areas of acute or chronic infarction. 3. Mild, diffuse volume loss. 4. Mild to moderate periventricular and subcortical white matter chronic microvascular ischemic changes. BRAIN MR ANGIOGRAM: Negative examination. NECK MR ANGIOGRAM: 1. Less than 50% stenosis of the internal carotid arteries bilaterally. 2. High-grade stenosis of the origin of the right vertebral artery. 3. Moderate stenosis of the origin of the left vertebral artery. The estimate of stenosis included in the report of the imaging study was calculated using the NASCET method Dictated by: Taya Castañeda MD, PhD on 08/14/2016 at 18:19 Approved by: Taya Castañeda MD, PhD on 08/14/2016 at 18:25 Cardiac Echo Impressions Echocardiogram Report Name: HECTOR GOODEN BStudy Date: 08/15/2016 Height: 64 in Hospital Exam Location: [facility] Weight: 143 lb Gender: Female BSA: 1.7 m2 : 1930 Age: 85 yrs BP: 180/75 mmHg Reason For Study: CVA Ordering Physician: HOSPITALIST [facility] Performed By: Brown Rivas Referring Physician: Dr. Anirudh Watson Interpretation Summary The ejection fraction is estimated to be 60-65%. There are no focal wall motion abnormalities. Left ventricular wall thickness is mildly increased. Injection of contrast documented no interatrial shunt. There is mild tricuspid regurgitation. The right ventricular systolic pressure is estimated at 30 mmHg assuming a right atrial pressure of 3 mm Hg. Assessment & Plan 85-year-old female past medical history severe hypertension presented with transient symptoms concerning for TIA or possible stroke. Ceftin on transfer from [facility] for further evaluation, medically stable condition: 1. CVA present of the time of admission with waxing and waning of symptoms after admission with recurrent episodes of right upper extremity and right lower extremity numbness, and now weakness. Patient continues to have slurred speech. - We will observe patient on stroke protocol, continuous telemetry monitoring in addition to neurologic checks every 4 hours - Repeat MRI via stroke protocol of head, showed a left alberto cerebrovascular accident. - Complete echocardiogram also fails to reveal source of patient's symptoms. - Fasting lipid panel and hemoglobin A1c also ordered and are found to be within normal range. - Permissive hypertension was allowed initially - Continue daily aspirin therapy. - Continue atorvastatin - I have consulted Dr. Terry Cintron of neurology and appreciate his time and expertise. Dr. Cintron recommended increasing losartan for improved blood pressure control at this point. - Dr. Cintron also recommends the following: "- Aspirin 81 mg daily - Increase atorvastatin to 80 mg daily - MRI noncontrast of brain - CT angio of head/neck - Repeat swallow study - Continue physical therapy - Maintain BP below 140/90" 2. Hypertension, presidents and admission. Improving - As noted above rule out some degree of permissive hypertension - We will continue patient's home losartan at 4 times per normal home dose. - Continue to monitor consider more aggressive control starting tomorrow. - I have consulted Dr. Terry Cintron of neurology and appreciate his time and expertise. Dr. Cintron recommended increasing losartan for improved blood pressure control at this point. We increased losartan to 50 mg by mouth twice a day and discontinued amlodipine given only once last evening. As amlodipine might be contributed to patient's continued dizziness. 3. Hypothyroidism - TSH is normal. - We will continue home dose of levothyroxine at this time 4. Mood disorder - We will continue patient's home medications of Wellbutrin and BuSpar 5. Possible vertigo presenting as nausea - We have started meclizine and this appears to improve patient's condition - Neurology has ordered a repeat MRI of the brain which shows some edema around the infarct which is a normal evolving process of the infarct and likely the cause for the patient's waxing and waning of symptoms. - We have reconsulted neurology. 6. Urinary tract infection - We checked UA urine C&S which appears to show an enterococcal urinary tract infection. Therefore, we ordered IV Unasyn pending final culture results. - Enterococcus sensitive to ampicillin will therefore start by mouth ampicillin and discontinue the IV Unasyn at the time of discharge.. 7. Speech therapy is very concerned the patient is aspirating - We will check modified barium swallow in a.m. - Continue Unasyn for now Disposition: Patient will need placement in a half-way facility for continued rehabilitation. Patient is not stable for discharge at this time Pain Evaluation: Adequate Pain Control GI Prophylaxis: Not indicated VTE Mechanical Devices: Intermittant Pneumatic CD Resuscitation Status: CPR: Attempt Resuscitation Jerome Chavez MD Aug 23, 2016 00:40
[2016-08-23 04:58] LABS: BASOPHILS % (AUTO) 0.2 % (0-3); EOSINOPHILS % (AUTO) 2.8 % (0-5); MONOCYTES % (AUTO) 5.5 % (4-12); Mean Corpuscular Hemoglobin 32.4 pg (27.0-35.0); Mean Corpuscular Volume 103.5 fL (81-100); NEUTROPHILS % (AUTO) 39.8 % (40-74); Platelet Count 194 bil/L (150-400)
[2016-08-23 05:03] VITALS: BP 169/72; PULSE 66; RESP 18; O2SAT 96
[2016-08-23] MEDS: Ampicillin-Sulbactam Inj 3,000 MG in 0.9% Sodium Chloride 100 ML IV SCH ×2 (05:26→11:00)
[2016-08-23 05:46] LABS: Magnesium 2.2 mg/dL (1.6-2.6)
[2016-08-23 09:26] VITALS: BP 146/69; PULSE 70; RESP 18; O2SAT 97
[2016-08-23] MEDS: BusPIRone 15 mg Dividose Tablet PO SCH (09:59)
[2016-08-23] MEDS: buPROPion SR 100 mg ER12 Tablet PO SCH (10:06)
[2016-08-23 10:16] VITALS: PULSE 72
[2016-08-23] MEDS ORDERED: LOSA50TA37 PO (11:04)
[2016-08-23] MEDS ORDERED: ATOR80TA PO (11:04)
[2016-08-23] MEDS ORDERED: SOMA350 PO (11:04)
[2016-08-23] MEDS ORDERED: OXYC-474 PO (11:04)
[2016-08-23] MEDS ORDERED: AMOX500C2 PO (11:07)
--- NOTE | 2016-08-23 11:10 | PCM.DIMED ---
Discharge Instructions Date of Service Aug 23, 2016 Dates of Hospitalization Aug 14, 2016 at 09:31 Discharge Diagnosis Discharge Diagnosis 1. CVA present of the time of admission 3. Hypothyroidism 4. Mood disorder 5. Possible vertigo presenting as nausea 6. Urinary tract infection 7. Speech therapy is very concerned the patient is aspirating Modified Barium Swallow is pending today. Medication Instructions Additional med instructions Referred at the SNF for PT, OT and Speech/Swallow Therapy Diet Discharge Diet: Other (Pending Barium Swallow speech therapy assessment today. ) Activity Discharge Activity: No restrictions Call your provider Call your provider for: Fever or Chills, Shortness of breath, Bleeding, Chest pain Patient Instructions Follow-up Provider: Rupert Watson MD Follow-up with PCP in: 1 week Provider: Carla Mccarty MD Follow-up in: 1 week Cristian Ridley MD Aug 23, 2016 11:10
[2016-08-23 13:17] VITALS: BP 153/68; PULSE 66; RESP 18; O2SAT 98
--- NOTE | 2016-08-23 13:31 | DRSVH ---
PROCEDURE: X-RAY BARIUM SWALLOW WITH FOOD & VIDEOGRAPHY ([id number]) INDICATIONS: Dysphagia with possible aspiration TECHNIQUE: Examination was conducted in conjunction with speech pathology per standard protocol. In the lateral projection, filming was performed of the patient swallowing. AP projection filming may also be performed with patient swallowing. COMPARISON: None. FINDINGS: Function: The oral preparatory phase appears normal, with proper containment. The subsequent oral pr opulsive phase, pharyngeal phase, and esophageal phase of swallowing also appear normal with all prof fered substances. Trace laryngeal penetration.. No pathologic vallecular pooling. The attending ph ysician was personally present in the room during the examination. Morphology: No cricopharyngeal bar is identified. No cervical esophageal webs. No Zenker's diverti culum. No strictures. IMPRESSION: Trace laryngeal penetration. Dictated by: Pascual MONTENEGRO Interpreted: Galindo Clayton MD on 08/23/2016 at 13:30 Transcribed by: SUE on 08/23/2016 at 13:30 Approved by: Galindo Clayton M.D. on 08/23/2016 at 16:28
--- NOTE | 2016-08-23 14:16 | ST BAR ---
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 Chavez. PRIMARY CARE PHYSICIAN: Rupert Watson MD. VISITS FROM START OF CARE: [facility]: [id number] G CODES AND MODIFIERS: 8996 CI, 8997 CI, 8998 CI. RECOMMENDATION: Recommendation is to continue a mechanical soft diet with extra gravy with thin liquids and no straws. CURRENT RELEVANT HISTORY: This is a very pleasant, 85-year-old female. The patient is admitted to [facility] at this time for a left alberto CVA. The patient has experienced fluctuating symptoms while she has been admitted to the hospital, and at times, has had difficulty with swallowing thin liquids. The current study is being completed today to fully assess swallowing mechanism in order to fully visualize swallow and give determinations for discharge diet. MEDICAL NECESSITY: Aspiration risk. PRIOR LEVEL OF FUNCTION: Independent. The patient resides on [facility] by herself. Her a number of years ago and she has lived there independently ever since. PREVIOUS THERAPY: Yes. 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 Patient reports gratitude for those services and reported improvement in symptoms. FUNCTIONAL LIMITATIONS: Coughing and choking with thin liquids sometimes. Symptoms have been intermittent. BASELINE TEST MEASURES: The patient was seated in a modified barium swallow chair and was viewed laterally. P.o. trials of barium in the following consistencies were given: Thin liquids via cup and straw, pureed, dysphagia mechanical, and mechanical soft, as well as a barium tablet with water. Oral mechanism exam was grossly within functional limits. However, voice is intermittently hoarse, cough is somewhat weak, and patient has some mild imprecise consonant articulation. ORAL PHASE: Labial seal was complete. Mastication was complete. AP propulsion was within functional limits. Base of tongue retraction was complete. PHARYNGEAL PHASE: Swallow reflex was mildly delayed but within functional limits for age. Laryngeal excursion was within functional limits. Mild vallecular residue was observed but was not outside of functional limits. No aspiration or penetration occurred in the current study. UES opening appeared to be within functional limits. ESOPHAGEAL PHASE: Could not be fully viewed due to patient positioning. Please see radiology report for further details. Barium tablet was administered and patient demonstrated great difficulty propelling barium tablet past the level of the vallecula. Barium tablet became stuck and could not pass with water. Followup swallows of applesauce did help clear the tablet and is recommended that continue at discharge. EVALUATION RESULTS: This is a very pleasant, 85-year-old female, who was seen for an inpatient modified barium swallow study after being diagnosed with an acute left alberto CVA. The patient has demonstrated intermittent difficulty with speech and swallow. The patient presented today with an age- appropriate and functional swallow. All trials of thin liquids via cup were swallowed without any aspiration or penetration. Sips of thin liquid from straw did result in some laryngeal penetration to the level of the vocal folds. However, no micro aspiration or thanh aspiration was observed in this study. All solid textures were swallowed well without difficulty or hesitation. Barium tablet halted in the vallecula but cleared with a substance of greater viscosity, i.e., the applesauce. RECOMMENDATIONS AT DISCHARGE: For the patient to continue a mechanical soft diet, thin liquids with cup. No straws, and to take her pills whole with applesauce. These recommendations were discussed with the patient, and she was instructed that she did not need to drink nectar thick liquids anymore upon discharge. Patient was pleased with the recommendations, expressed gratitude for care, and had no further questions. Thank you very much for this consultation.
--- NOTE | 2016-08-23 14:42 | PCM.DC.MED ---
Discharge Summary Date of Service Aug 23, 2016 Dates of Hospitalization Date of Hospital Admission Aug 14, 2016 at 09:31 Date of Discharge: Aug 23, 2016 Providers: Admitting Physician: Jose M Trevino MD Primary Care Physician: Rupert Watson MD Attending Physician: Mina Ridley MD Diagnosis at Time of Discharge Diagnosis at Time of Discharge 1. CVA present of the time of admission 3. Hypothyroidism 4. Mood disorder 5. Possible vertigo presenting as nausea 6. Urinary tract infection 7. Speech therapy is very concerned the patient is aspirating Modified Barium Swallow is pending today. Consultations [address] [address] PROGRESS NOTE PATIENT: HECTOR GOODEN : 1930 MR#: [id number] ADMIT: 08/14/2016 JOB ID: [id number] DATE: 08/17/2016 SUBJECTIVE: The patient reportedly did note transient worsening of her neurologic symptoms Earlier today. This has since slightly improved. I did explain to her that this is likely secondary to the stuttering nature of her transient ischemic attack. PHYSICAL EXAMINATION: Temperature 36.3, pulse of 61, respiratory rate of 18, blood pressure 137/72, pulse oximetry 98% on room air. General: She is a well-developed, well-nourished woman, in no acute distress. Head: Normocephalic, atraumatic. Neck supple. No carotid bruits were auscultated. Chest: Clear to auscultation. Heart: Regular rate and rhythm. Abdomen: Soft, nondistended, nontender. Extremities: No cyanosis, clubbing, or edema. NEUROLOGIC EXAMINATION: Mental status: She is awake, alert, and oriented x3. Speech is dysarthric but there is no aphasia. Cranial nerves: Pupils equal, round, and reactive to light. Extraocular movements were smooth and conjugate with no evidence of nystagmus. Face appeared symmetrical. Facial sensation was intact to light touch and temperature. There was a mild right facial droop as well as diminished sensation on the right side of her face. Tongue was midline. Sternocleidomastoid and trapezius were 5/5 bilaterally. Motor: Right upper extremity 4/5. Right lower extremity 3/5. Extremities: There was bilateral lower extremity 1+ edema with chronic venous stasis changes. Sensation was diminished to light touch and temperature over the right upper and right lower extremities. Coordination: Zwzvaf-gl-paba and vqol-te-ffem were abnormal, however, commensurate, given the degree of weakness with no evidence of dysmetria. Deep tendon reflexes diminished throughout. The Babinski was present bilaterally. Gait was deferred. IMPRESSION: A 5 x 6 mm subacute stroke involving the left pontine region of the brainstem without mass effect or hemorrhage. The computed tomography angiogram demonstrated no high-grade stenosis or occlusion of the central intracranial arteries of the head and neck. No focal stenosis was noted in the vertebral or basilar arteries. There was tortuosity of the proximal vertebral arteries likely accounting for artifact of the prior magnetic resonance imaging study of the brain, and no focal stenosis demonstrated at their origins, however. Mild narrowing of the carotid bulbs bilaterally, less than 20% on the right and less than 50% on the left was noted. On the CT today, a small hypodensity corresponding to the acute infarct was appreciated. RECOMMENDATIONS: Continue stroke protocol. Continue to optimize control of her stroke risk factors including hypertension. At this point, she has had permissive hypertension since the onset of the stroke on Friday, and at this point, I would continue to optimize control of her blood pressures, gradually bringing the blood pressure under closer control, aiming for a systolic of 140. Continue stroke protocol. Continue physical therapy/occupational therapy. She would also benefit from being evaluated for placement in a [facility] facility or undergoing inpatient rehab. Thank you, again, Dr. Chavez, for allowing me to participate in the care of your patient. Please feel free to contact me with any questions or concerns. I believe that she would benefit from either obtaining further therapy in a [facility] facility or inpatient rehabilitation. Terry Cintron MD 08/17/16 1920 Procedures XRay, CTs & MRIs PROCEDURE: MRI STROKE PROTOCOL ([id number]) Pre- and post-contrast brain MRI, non-contrast brain MR angiogram, pre- and postcontrast neck MR angiogram INDICATIONS: Dizziness,evaluate for stroke TECHNIQUE: Brain: Noncontrast axial T1 spin echo, axial T2 fast spin echo, sagittal and axial FLAIR, coronal T2 fast spin echo, axial gradient echo, axial diffusion and ADC through the brain. After the administration of contrast, axial 3D VIBE of the cranial vasculature and brain. Brain MRA: Non-contrast 3-D time of flight MR angiogram, with multiple maximum- intensity-projection (MIP) reformats performed. Neck MRA: Axial and sagittal TruFISP through the neck. Coronal dynamic MR angiogram during administration of contrast in the arterial and venous phases, with 3-dimenstional xczlzmc-fkxykwwcp-cztkfcxnso (MIP) reformats constructed from subtraction images. COMPARISON: None. FINDINGS: Image quality: Excellent. BRAIN: CSF spaces: Ventricles are normal in size and shape. Basal cisterns are patent. No extra-axial fluid collections. Brain: No intracranial bleeds or mass effects. Mcdonald-white matter interface is normal. Diffusion weighted images show no acute ischemic insults. Punctate and confluent areas of increased T2 signal noted in the periventricular and subcortical white matter tracts compatible with mild to moderate chronic microvascular ischemic changes. Brainstem appears normal. Normal intravascular flow voids are present. No abnormal intracranial enhancement. Skull and face: Calvarial marrow signal is normal. Orbits appear normal. Sinuses: Sinuses and mastoids are clear. BRAIN MR ANGIOGRAM: Anterior circulation: Intracranial internal carotid arteries are normal in size and enhancement. The flow within the paired anterior cerebral arteries is normal and symmetric. The flow within the middle cerebral arteries is normal and symmetric. The anterior communicating artery is seen. No stenoses, occlusions, or aneurysms. Posterior circulation: The visualized portions of the vertebral arteries demonstrate normal caliber, and join to form a normal appearing basilar artery. The flow within the posterior cerebral arteries is normal and symmetric. No stenoses, occlusions, or aneurysms. NECK MR ANGIOGRAM: Carotids: Great vessels demonstrate a conventional anatomy as they arise from the aortic arch. The origins of the common carotid arteries appear patent. The calibers and courses of both common carotid arteries are normal. Mild atherosclerotic irregularity noted in the origins of the internal carotid arteries bilaterally which causes less than 50% stenosis. Posterior circulation: Atherosclerotic irregularity noted in the origins of the vertebral arteries bilaterally. Atherosclerotic disease causes high grade stenosis of the origin of the right vertebral artery. Atherosclerotic disease causes moderate stenosis of the origin of the left vertebral artery. More superior portions of both vertebral arteries demonstrate normal course and caliber, and join to form a normal appearing basilar artery. Miscellaneous: Subclavian arteries appear patent. Pre-contrast images through the neck show no soft tissue abnormalities. IMPRESSION: BRAIN MRI: 1. No acute intracranial disease process. 2. No areas of acute or chronic infarction. 3. Mild, diffuse volume loss. 4. Mild to moderate periventricular and subcortical white matter chronic microvascular ischemic changes. BRAIN MR ANGIOGRAM: Negative examination. NECK MR ANGIOGRAM: 1. Less than 50% stenosis of the internal carotid arteries bilaterally. 2. High-grade stenosis of the origin of the right vertebral artery. 3. Moderate stenosis of the origin of the left vertebral artery. The estimate of stenosis included in the report of the imaging study was calculated using the NASCET method Dictated by: Taya Castañeda MD, PhD on 08/14/2016 at 18:19 Approved by: Taya Castañeda MD, PhD on 08/14/2016 at 18:25 Cardiac Echo Impression Echocardiogram Report Name: HECTOR GOODEN BStudy Date: 08/15/2016 Height: 64 in Hospital Exam Location: [facility] Weight: 143 lb Gender: Female BSA: 1.7 m2 : 1930 Age: 85 yrs BP: 180/75 mmHg Reason For Study: CVA Ordering Physician: HOSPITALIST [facility] Performed By: Brown Rivas Referring Physician: Dr. Anirudh Watson Interpretation Summary The ejection fraction is estimated to be 60-65%. There are no focal wall motion abnormalities. Left ventricular wall thickness is mildly increased. Injection of contrast documented no interatrial shunt. There is mild tricuspid regurgitation. The right ventricular systolic pressure is estimated at 30 mmHg assuming a right atrial pressure of 3 mm Hg. Brief History Patient is a 85-year-old female with a history of hypertension, CLL, and hypothyroidism, who presented to [facility] ER with impaired coordination, right arm and leg numbness, and transient speech difficulty. Her symptoms began at about 2 PM on 08/13 with dizziness and poor coordination, and she began to develop a diffuse headache. By the evening, she began to develop numbness in her right upper and lower extremities. 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 Her son had noticed some speech difficulty over the phone, but this had apparently resolved by the time the medics arrived. She reports her symptoms had mostly resolved by the time she arrived to the hospital, and had no other complaints. She was transferred to [facility], where she was noted to have severe hypertension (BP 207/84). She denied any other symptoms on admission. She was not on Aspirin before the symptoms began. MRI stroke protocol on 08/14/16 showed no acute intracranial process, mild- moderate periventricular and subcortical white matter chronic microvascular ischemic changes, high grade stenosis of the right vertebral artery, and moderate stenosis of the left vertebral artery. CT brain without contrast on 08/15 was negative for any acute intracranial process. Her blood pressure remained elevated and difficult to control, with SBP ranging between 180s-200s. Yesterday, she began to notice worsening right arm and leg numbness and her speech difficulties began worsening. Today, she reports right arm and leg numbness with impaired coordination of her right arm. She also reports worsening speech difficulties, and states she has been having slurred slower speech and difficulty with word-finding. She also reports some difficulty ambulating today due to right leg weakness. She denies vision changes, facial droop, difficulty swallowing. She states she had a recent hip fracture and surgery and has been ambulating with a cane. She states she is very independent at baseline and is highly motivated to return to her independent lifestyle. Hospital Course 85-year-old female past medical history severe hypertension presented with transient symptoms concerning for TIA or possible stroke. She was transferred from [facility] for further evaluation, medically unstable condition: 1. CVA present of the time of admission with waxing and waning of symptoms after admission with recurrent episodes of right upper extremity and right lower extremity numbness, and now weakness. Speech continues slightly slurred but motor function has normalized. No observed dizziness since yesterday. - Repeat MRI via stroke protocol of head, showed a left alberto cerebrovascular accident. - Complete echocardiogram also fails to reveal source of patient's symptoms. - Fasting lipid panel and hemoglobin A1c also ordered and are found to be within normal range. - Permissive hypertension was allowed initially - Continue daily aspirin therapy. - Continue atorvastatin - I have consulted Dr. Terry Cintron of neurology and appreciate his time and expertise. Dr. Cintron recommended increasing losartan for improved blood pressure control at this point. - Dr. Cintron also recommends the following: "- Aspirin 81 mg daily - Increase atorvastatin to 80 mg daily - MRI noncontrast of brain - CT angio of head/neck - Repeat swallow study - Continue physical therapy - Maintain BP below 140/90" She will be going to the [facility] facility in [place] after her barium swallow evaluation today. 2. Hypertension, present on admission. Improving - As noted above rule out some degree of permissive hypertension - We will continue patient's home losartan at 4 times per normal home dose. - I have consulted Dr. Terry Cintron of neurology and appreciate his time and expertise. Dr. Cintron recommended increasing losartan for improved blood pressure control at this point. We increased losartan to 50 mg by mouth twice a day and discontinued amlodipine given only once last evening. As amlodipine might be contributed to patient's continued dizziness. 3. Hypothyroidism - TSH is normal. - We will continue home dose of levothyroxine at this time 4. Mood disorder - We will continue patient's home medications of Wellbutrin and BuSpar 5. Possible vertigo presenting as nausea - We have started meclizine and this appears to improve patient's condition - Neurology did a repeat MRI of the brain which shows some edema around the infarct which is a normal evolving process of the infarct and likely the cause for the patient's waxing and waning of symptoms. 6. Urinary tract infection - We checked UA urine C&S which appears to show an enterococcal urinary tract infection. Therefore, we ordered IV Unasyn pending final culture results. - Enterococcus sensitive to ampicillin so was discharged on amoxicillin. 7. Speech therapy is very concerned the patient is aspirating - We will check modified barium swallow today before discharge, with speech therapy to cotton picker the treatment at the long-term tomorrow. Diet textures per their recommendations to follow. Exam Vital Signs (Last) Date Time Temp Pulse Resp B/P Pulse Ox O2 Delivery O2 Flow Rate FiO2 08/23/16 10:16 72 08/23/16 09:26 36.6 18 146/69 97 Room Air Exam On exam today heart is regular rate and rhythm and lungs are clear to auscultation bilaterally there is no murmur. There is no ankle edema. Motor strength in all extremities is 4/5. Babinski is downgoing bilaterally. Small bruise noted on the top of her right foot. The white blood count is 15.4. The hemoglobin is 12.2. Albumin is 2.6. Protein is 4.5. CMP is normal. Test 08/14/16 11:50 08/18/16 13:00 08/20/16 11:59 08/21/16 06:35 Hemoglobin A1c 5.9% (4.8-5.6) Triglycerides Level 68mg/dL (0-149) Cholesterol Level 153mg/dL (100-199) LDL Cholesterol, Calculated 48.400mg/dL (0-99) VLDL Cholesterol 13.600mg/dL HDL Cholesterol 91mg/dL (>39) Cholesterol/HDL Ratio 1.68 (0.0-4.4) Thyroid Stimulating Hormone (TSH) 1.490uIU/mL (0.450-4.500) Free Thyroxine 1.11ng/dL (0.82-1.77) Hold Urine Received (Received) Urine Color Yellow (YELLOW) Urine Appearance Hazy (CLEAR,HAZY) Urine pH 7.5 (5.0-8.0) Urine Specific [place] 1.020 (1.003-1.035) Urine Protein 100mg/dL (NEG,TRACE) Urine Glucose (UA) Negativemg/dL (NEGATIVE) Urine Ketones Negativemg/dL (NEGATIVE) Urine Occult Blood Negative (NEGATIVE) Urine Nitrite Negative (NEGATIVE) Urine Bilirubin Negative (NEGATIVE) Urine Urobilinogen Normalmg/dL (NORMAL) Urine Leukocyte Esterase Negative (NEGATIVE) Urine RBC 0-2/hpf (0-2) Urine WBC 11-50/hpf (0-5) Urine Epithelial Cells Occasional/hpf (NONE-MOD) Urine Crystals None seen (NONE SEEN) Urine Bacteria Many/hpf (NONE-FEW) Urine Hyaline Casts None/lpf (NONE) Urine Granular Casts None seen (NONE SEEN) Urine Waxy Casts None seen (NONE SEEN) Urine Red Blood Cell Casts None seen (NONE SEEN) Urine White Blood Cell Casts None seen (NONE SEEN) Urine Mucus None seen (None Seen) Urine Trichomonas None seen (NONE SEEN) Urine Yeast None (NONE SEEN) Urinalysis Comment None Urine Culture Reflexed Indicated Erythrocyte Sedimentation Rate 23mm/hr (0-40) Phosphorus Level 4.0mg/dL (2.5-4.9) C-Reactive Protein < 0.0mg/dL (0.0-0.5) Procalcitonin 0.06ng/mL (0.00-0.08) Test 08/23/16 04:40 White Blood Count 15.4th/mm3 (3.8-10.1) Red Blood Count 3.76mil/mm3 (3.90-5.20) Hemoglobin 12.2g/dL (12.0-15.6) Hematocrit 38.9% (35.0-46.0) Mean Corpuscular Volume 103.5fL (81-100) Mean Corpuscular Hemoglobin 32.4pg (27.0-35.0) Mean Corpuscular Hemoglobin Concent 31.4% (32.0-37.0) Red Cell Distribution Width 14.4% (12.3-15.4) Platelet Count 194bil/L (150-400) Neutrophils (%) (Auto) 39.8% (40-74) Lymphocytes (%) (Auto) 51.5% (14-46) Monocytes (%) (Auto) 5.5% (4-12) Eosinophils (%) (Auto) 2.8% (0-5) Basophils (%) (Auto) 0.2% (0-3) Sodium Level 147mEq/L (134-144) Potassium Level 4.4mEq/L (3.5-5.2) Chloride Level 110mEq/L (97-108) Carbon Dioxide Level 27mmol/L (18-29) Blood Urea Nitrogen 24mg/dL (8-27) Creatinine 0.65mg/dL (0.57-1.00) Estimat Glomerular Filtration Rate 124mL/min (>59) Glucose Level 94mg/dL (60-99) Calcium Level 8.1mg/dL (8.5-10.1) Magnesium Level 2.2mg/dL (1.6-2.6) Total Bilirubin 0.2mg/dL (0.0-1.2) Aspartate Amino Transf (AST/SGOT) 16U/L (0-50) Alanine Aminotransferase (ALT/SGPT) 12U/L (0-32) Alkaline Phosphatase 86U/L (25-165) Total Protein 4.5g/dL (6.4-8.4) Albumin 2.6g/dL (3.4-5.0) Discharge Medications Discharge Medications Amoxicillin (Amoxicillin) 500 Mg Capsule 500 MG PO TID Prescribed by: NICK RIDLEY MD Atorvastatin (Lipitor) 80 Mg Tablet 80 MG PO DAILY Prescribed by: NICK RIDLEY MD Bupropion HCl (Bupropion HCl ER) 200 Mg Tablet.er 100 MG PO BID (Reported) Buspirone (Buspirone) 5 Mg Tablet 5 MG PO BID (Reported) Levothyroxine (Levothyroxine) 75 Mcg Tablet 75 MCG PO DAILY (Reported) Losartan Potassium (Losartan Potassium) 50 Mg Tablet 50 MG PO BID Prescribed by: NICK RIDLEY MD Minocycline (Minocycline) 100 Mg Capsule 100 MG PO DAILY (Reported) Oxybutynin Chloride ER (Oxybutynin Chloride ER) 5 Mg Tab.er.24 5 MG PO DAILY ( Reported) As needed Aspirin (Aspirin) 325 Mg Tablet 325 MG PO DIRECTED PRN PRN Headache (Reported ) Baclofen (Baclofen) 10 Mg Tablet 10 MG PO DAILY PRN PRN For Spasm (Reported) Carisoprodol (Carisoprodol) 350 Mg Tablet 350 MG PO HS PRN PRN Pain, Insomnia Prescribed by: NICK RIDLEY MD Oxycodone (Roxicodone) 5 Mg Tablet 5 MG PO Q4H PRN PRN For Pain Prescribed by: NICK RIDLEY MD Additional med instructions Referred at the SNF for PT, OT and Speech/Swallow Therapy Followup Plan Discharge Diet: Other (Pending Barium Swallow speech therapy assessment today. ) Discharge Activity: No restrictions Follow-up Provider: Rupert Watson MD Follow-up with PCP in: 1 week Provider: Carla Mccarty MD Follow-up in: 1 week Time spent 35 Cristian Ridley MD Aug 23, 2016 11:10
== END 2016-08-23 13:40 | DRG 65 ==
LOC: OBSVTOIN 09:31 → MPC 09:31
PROVIDERS: ADMIT Hospitalist; ATTEND Family Medicine
DX: I63.9 Cerebral infarction, unspecified (principal); G81.94 Hemiplegia, unspecified affecting left nondominant side; N39.0 Urinary tract infection, site not specified; B95.2 Enterococcus as the cause of diseases classified elsewhere; R47.81 Slurred speech; I10 Essential (primary) hypertension; E03.9 Hypothyroidism, unspecified; F39 Unspecified mood [affective] disorder; R42 Dizziness and giddiness